=== PATIENT | male | born 1950 | race Caucasian/White ===

== ENCOUNTER 2018-01-04 11:46 | Inpatient (IN) ==
[2018-01-04] MEDS ORDERED: NS 1,000 ML IV ONE (11:57)
[2018-01-04] MEDS: SALINE FLUSH 10ml SYRINGE IVF PRN ×2 (12:21→16:03)
[2018-01-04] MEDS ORDERED: KETOROLAC 30 MG/ML INJECTION IVP ONE (12:31)
--- OUTSIDE RECORDS SUMMARY | 2018-01-04 12:38 | External Medical Summary | Referral Summary ---
:1950 Author Organization [facility] [place] [address] Care Team Providers Name Role Phone Gildardo Nuñez Primary Care Physician Encounter [facility] [id number] Date(s): 03/27/17 - 03/27/17 [facility] [place] [address] Discharge Diagnosis: BPH with urinary obstruction Discharge Diagnosis: Impaired fasting blood sugar Discharge Diagnosis: Adult hypothyroidism Discharge Diagnosis: Acute pansinusitis Discharge Diagnosis: Acute bronchitis Discharge Diagnosis: CKD (chronic kidney disease) stage 3, GFR 30-59 ml/min Discharge Diagnosis: Mixed hyperlipidemia Discharge Diagnosis: Benign essential hypertension Discharge Diagnosis: Thrombocytopenia Discharge Disposition: 01-Home or Self Care Attending Physician: Gildardo Nuñez MD Admitting Physician: Gildardo Nuñez MD Vital Signs Most recent to oldest [Reference Range]: 1 Temperature Tympanic [36.6-38.1 degC] 36.7 degC (03/27/17 7:17 AM) Peripheral Pulse Rate [60-100 bpm] 65 bpm (03/27/17 7:17 AM) Blood Pressure [90-140/60-90 mmHg] 142/82 mmHg *HI* (03/27/17 7:17 AM) SpO2 96 % (03/27/17 7:17 AM) Problem List Condition Effective Dates Status Health Status Informant Asthma(Confirmed) Resolved Benign essential Active hypertension(Confirmed) BPH (benign prostatic hypertrophy) Active with urinary obstruction(Confirmed) BPH(Confirmed) Resolved Low serum HDL(Confirmed) Active Short of breath on Active exertion(Confirmed) Essential hypertension(Confirmed) Active Elevated blood pressure (not Active hypertension)(Confirmed) Olivia thyroiditis(Confirmed) Resolved hx of BPH with prostatism,chronic Resolved prostatitis(Confirmed) hx of calculus imbedded in the Resolved mucosa/left distal ureter(Confirmed) hx of hard left prostatic Resolved nodule(Confirmed) hx of left sided pain(Confirmed) Resolved hx of right distal & ureteral Resolved meatal stenosis(Confirmed) hx of right distal ureteral Resolved obstructed/impacted calculus(Confirmed) Hyperlipidemia(Confirmed) Resolved Hypertension(Confirmed) Resolved Hypothyroidism(Confirmed) Resolved Impaired fasting glucose(Confirmed) Resolved kidney disease/stones(Confirmed) Resolved Leukopenia(Confirmed) Active Low back pain(Confirmed) Resolved Well adult exam(Confirmed) Active Multinodular goiter(Confirmed) Resolved Myelodysplastic syndrome(Confirmed) Resolved Thrombocytopenia(Confirmed) Active Prostatism(Confirmed) Resolved PSA(Confirmed) 10/15/06 Resolved PSA(Confirmed) 04/18/07 Resolved PSA(Confirmed) 06/29/08 Resolved PSA(Confirmed) 01/08/06 Resolved pt is circumcised(Confirmed) Resolved Tinnitus(Confirmed) Resolved ureteral lithiasis(Confirmed) 2006 Resolved Ureterolithiasis(Confirmed)2006 Resolved Need for hepatitis A and B Active vaccination(Confirmed) 1again Allergies, Adverse Reactions, Alerts Substance Reaction Severity Status amoxicillin hives Active Medications levothyroxine 137 mcg (0.137 mg) oral tablet 137 mcg 1 tabs, Oral, Daily, # 90 tabs, 3 Refill(s), Pharmacy: [facility], 1 tabs Oral Daily Start Date: 03/21/16 Status: Orderedlosartan 25 mg oral tablet 25 mg 1 tabs, Oral, Daily, # 30 tabs, 11 Refill(s), Pharmacy: [facility], 1 tabs Oral Daily Start Date: 11/13/16 Status: OrderedVitamin B12 2,500 mcg, SubLingual, Daily, 0 Refill(s) Start Date: 11/13/16 Status: OrderedVitamin D3 1000 intl units oral capsule 1,000 Intl_Units 1 caps, Oral, Daily, 0 Refill(s) Start Date: 11/13/16 Status: Ordered Immunizations Given and Recorded Vaccine Date Status Refusal Reason hepatitis A-hepatitis B vaccine 11/13/16 Given hepatitis A-hepatitis B vaccine 01/26/15 Given hepatitis A-hepatitis B vaccine 12/28/13 Given zoster vaccine live 04/29/12 Given influenza virus vaccine, live 04/29/12 Given tetanus/diphth/pertuss (Tdap) adult/adol 11/25/09 Recorded tetanus-diphth toxoids (Td) adult/adol 10/16/01 Given tetanus-diphth toxoids (Td) adult/adol 12/20/94 Given Procedures Procedure Date Related Diagnosis Body Site Laryngoscopy 2014 Bone marrow aspiration 2011 Cystoscopy1 05/30/07 Removal of stent 05/30/07 Cystoscopy & right distal metal balloon 05/21/07 dilation Right Distal Lithotripsy 05/21/07 Stenting2 05/21/07 Right distal ureteral lithotripsy 04/02/07 Total thyroidectomy3 08/2006 Lithotripsy4 07/2006 needle biopsy of the thyroid 05/2006 cysto and needle biopsy of the prostate 02/13/06 Tonsillectomy 1959 [id number] [id number] thyroid [id number] Social History Social History Type Response Smoking Status Never smoker entered on: 12/28/13 Assessment and Plan Extracted from: Title: Ambulatory Patient Education Author: Gildardo Nuñez MD Date: 03/27/17 Pulmonary Medicine Acute Bronchitis Bronchitis is inflammation of the airways that extend from the windpipe into the lungs (bronchi). The inflammation often causes mucus to develop. This leads to a cough, which is the most common symptom of bronchitis. In acute bronchitis, the condition usually develops suddenly and goes away over time, usually in a couple weeks. Smoking, allergies, and asthma can make bronchitis worse. Repeated episodes of bronchitis may cause further lung problems. CAUSES Acute bronchitis is most often caused by the same virus that causes a cold. The virus can spread from person to person (contagious) through coughing, sneezing, and touching contaminated objects. SIGNS AND SYMPTOMS Cough. Fever. Coughing up mucus. Body aches. Chest congestion. Chills. Shortness of breath. Sore throat. DIAGNOSIS Acute bronchitis is usually diagnosed through a physical exam. Your health care provider will also ask you questions about your medical history. Tests, such as chest X-rays, are sometimes done to rule out other conditions. TREATMENT Acute bronchitis usually goes away in a couple weeks. Oftentimes, no medical treatment is necessary. Medicines are sometimes given for relief of fever or cough. Antibiotic medicines are usually not need ed but may be prescribed in certain situations. In some cases, an inhaler may be recommended to help reduce shortness of breath and control the cough. A cool mist vaporizer may also be used to help thin bronchial secretions and make it easier to clear the chest. HOME CARE INSTRUCTIONS Get plenty of rest. Drink enough fluids to keep your urine clear or pale yellow (unless you have a medical condition that requires fluid restriction). Increasing fluids may help thin your respiratory secretions (sputum ) and reduce chest congestion, and it will prevent dehydration. Take medicines only as directed by your health care provider. If you were prescribed an antibiotic medicine, finish it all even if you start to feel better. Avoid smoking and secondhand smoke. Exposure to cigarette smoke or irritating chemicals will make bronchitis worse. If you are a smoker, consider using nicotine gum or skin patches to help control w ithdrawal symptoms. Quitting smoking will help your lungs heal faster. Reduce the chances of another bout of acute bronchitis by washing your hands frequently, avoiding people with cold symptoms, and trying not to touch your hands to your mouth, nose, or eyes. Keep all follow-up visits as directed by your health care provider. SEEK MEDICAL CARE IF: Your symptoms do not improve after 1 week of treatment. SEEK IMMEDIATE MEDICAL CARE IF: You develop an increased fever or chills. You have chest pain. You have severe shortness of breath. You have bloody sputum. You develop dehydration. You faint or repeatedly feel like you are going to pass out. You develop repeated vomiting. You develop a severe headache. MAKE SURE YOU: Understand these instructions. Will watch your condition. Will get help right away if you are not doing well or get worse. This information is not intended to replace advice given to you by your health care provider. Make sure you discuss any questions you have with your health care provider. Document Released: 07/25/2005 Document Revised: 07/08/2015 Document Reviewed: 12/08/2013 [employer] Patient Education 2017 [employer] No follow up information was provided. Extracted from: Title: several problems Author: Gildardo Nuñez MD Date: 03/27/17 Impression and Plan Diagnosis Benign essential hypertension ([id number] I10, Discharge, Medical). Acute bronchitis (VQF32-JV J20.9, Discharge, Medical). Acute pansinusitis (GDO74-HZ J01.40, Discharge, Medical). Adult hypothyroidism (XWA41-VV E03.9, Discharge, Medical). Thrombocytopenia (IQL55-XW D69.6, Discharge, Medical). Mixed hyperlipidemia (UCU28-PV E78.2, Discharge, Medical). BPH with urinary obstruction (CPU97-WV N40.1, Discharge, Medical). CKD (chronic kidney disease) stage 3, GFR 30-59 ml/min (NSK84-YK N18.3, Discharge, Medical). Impaired fasting blood sugar (HSZ28-DU R73.01, Discharge, Medical). Plan: 1) Continue your current meds. 2) Rest in order to get over your bronchitis and viral sinusitis. 3) See me in 6 months and as needed.. Orders Orders (Selected) Outpatient Orders Ordered Office Visit Level 4 Est 30682: . Dx/Order Association Plan: Diagnosis: Acute bronchitis Comment: Ordered: Office Visit Level 4 Est [id number]; 03/27/17 6:59:00 CDT, Acute bronchitis | Acute pansinusitis | Benign essential hypertension | CKD ( chronic kidney disease) stage 3, GFR 30-59 ml/mi n | Impaired fasting blood sugar | Mixed hyperlipidemia | Thrombocytopenia | BPH with urinary obstructio... Diagnosis: Acute pansinusitis Comment: Ordered: Office Visit Level 4 Est [id number]; 03/27/17 6:59:00 CDT, Acute bronchitis | Acute pansinusitis | Benign essential hypertension | CKD ( chronic kidney disease) stage 3, GFR 30-59 ml/mi n | Impaired fasting blood sugar | Mixed hyperlipidemia | Thrombocytopenia | BPH with urinary obstructio... Diagnosis: Adult hypothyroidism Comment: Ordered: Office Visit Level 4 Est 15761; 03/27/17 6:59:00 CDT, Acute bronchitis | Acute pansinusitis | Benign essential hypertension | CKD ( chronic kidney disease) stage 3, GFR 30-59 ml/mi n | Impaired fasting blood sugar | Mixed hyperlipidemia | Thrombocytopenia | BPH with urinary obstructio... Diagnosis: BPH with urinary obstruction Comment: Ordered: Office Visit Level 4 Est [id number]; 03/27/17 6:59:00 CDT, Acute bronchitis | Acute pansinusitis | Benign essential hypertension | CKD ( chronic kidney disease) stage 3, GFR 30-59 ml/mi n | Impaired fasting blood sugar | Mixed hyperlipidemia | Thrombocytopenia | BPH with urinary obstructio... Diagnosis: Benign essential hypertension Comment: Ordered: Office Visit Level 4 Est 23283; 03/27/17 6:59:00 CDT, Acute bronchitis | Acute pansinusitis | Benign essential hypertension | CKD ( chronic kidney disease) stage 3, GFR 30-59 ml/mi n | Impaired fasting blood sugar | Mixed hyperlipidemia | Thrombocytopenia | BPH with urinary obstructio... Diagnosis: CKD (chronic kidney disease) stage 3, GFR 30-59 ml/min Comment: Ordered: Office Visit Level 4 Est [id number]; 03/27/17 6:59:00 CDT, Acute bronchitis | Acute pansinusitis | Benign essential hypertension | CKD ( chronic kidney disease) stage 3, GFR 30-59 ml/mi n | Impaired fasting blood sugar | Mixed hyperlipidemia | Thrombocytopenia | BPH with urinary obstructio... Diagnosis: Impaired fasting blood sugar Comment: Ordered: Office Visit Level 4 Est [id number]; 03/27/17 6:59:00 CDT, Acute bronchitis | Acute pansinusitis | Benign essential hypertension | CKD ( chronic kidney disease) stage 3, GFR 30-59 ml/mi n | Impaired fasting blood sugar | Mixed hyperlipidemia | Thrombocytopenia | BPH with urinary obstructio... Diagnosis: Mixed hyperlipidemia Comment: Ordered: Office Visit Level 4 Est [id number]; 03/27/17 6:59:00 CDT, Acute bronchitis | Acute pansinusitis | Benign essential hypertension | CKD ( chronic kidney disease) stage 3, GFR 30-59 ml/mi n | Impaired fasting blood sugar | Mixed hyperlipidemia | Thrombocytopenia | BPH with urinary obstructio... Diagnosis: Thrombocytopenia Comment: Ordered: Office Visit Level 4 Est [id number]; 03/27/17 6:59:00 CDT, Acute bronchitis | Acute pansinusitis | Benign essential hypertension | CKD ( chronic kidney disease) stage 3, GFR 30-59 ml/mi n | Impaired fasting blood sugar | Mixed hyperlipidemia | Thrombocytopenia | BPH with urinary obstructio... End of Orders ."
--- OUTSIDE RECORDS SUMMARY | 2018-01-04 12:39 | External Medical Summary | Referral Summary ---
:1950 Author Organization [facility] Address [address] [place] [address] Care Team Providers Name Role Phone Gildardo Nuñez Primary Care Physician Encounter [facility] Date(s): 11/15/16 - 11/15/16 [facility] [address] [place] [address] [place] Discharge Disposition: 01-Home or Self Care Attending Physician: Floyd Rubin MD Admitting Physician: Floyd Rubin MD Vital Signs Most recent to oldest [Reference Range]: 1 Peripheral Pulse Rate [60-100 bpm] 70 bpm (11/15/16 11:57 AM) Blood Pressure [90-140/60-90 mmHg] 177/99 mmHg *HI* (11/15/16 11:57 AM) Problem List Condition Effective Dates Status [...] Resolved Tinnitus(Confirmed) Resolved ureteral lithiasis(Confirmed) 2006 Resolved Ureterolithiasis(Confirmed)1 2006 Resolved Need for hepatitis A and B Active vaccination(Confirmed) 1again Allergies, Adverse Reactions, Alerts Substance Reaction Severity Status amoxicillin hives Active Medications levothyroxine 137 mcg (0.137 mg) oral tablet 137 mcg 1 tabs, Oral, Daily, # 90 tabs, 3 Refill(s), Pharmacy: [facility], 1 tabs Oral Daily Start Date: 03/21/16 Status: Orderedlosartan 25 mg oral tablet 25 mg 1 tabs, Oral, Daily, # 30 tabs, 11 Refill(s), Pharmacy: [facility], 1 tabs Oral Daily Start Date: 11/13/16 Status: OrderedVitamin B12 2,500 mcg, SubLingual, Daily, 0 Refill(s) Start Date: 11/13/16 Status: OrderedVitamin D3 1000 intl units oral capsule 1,000 Intl_Units 1 caps, Oral, Daily, 0 Refill(s) Start Date: 11/13/16 Status: Ordered Results No data available for this section Immunizations Given and Recorded Vaccine Date Status Refusal Reason tetanus/diphth/pertuss (Tdap) adult/adol 11/25/09 Recorded hepatitis A-hepatitis B vaccine 11/13/16 Given hepatitis A-hepatitis B vaccine 01/26/15 Given hepatitis A-hepatitis B vaccine 12/28/13 Given influenza virus vaccine, live 04/29/12 Given tetanus-diphth toxoids (Td) adult/adol 10/16/01 Given tetanus-diphth toxoids (Td) adult/adol 12/20/94 Given zoster vaccine live 04/29/12 Given Procedures Procedure Date Related Diagnosis Body Site Laryngoscopy 2014 Bone marrow aspiration 2011 Cystoscopy1 05/30/07 Removal of stent 05/30/07 Cystoscopy & right distal metal balloon 11/21/07 dilation Right Distal Lithotripsy 05/21/07 Stenting2 05/21/07 Right distal ureteral lithotripsy 04/02/07 Total thyroidectomy3 08/2006 Lithotripsy4 07/2006 needle biopsy of the thyroid 05/2006 cysto and needle biopsy of the prostate 02/13/06 Tonsillectomy 1959 [id number] thyroid [id number] Social History Social History Type Response Smoking Status Never smoker Assessment and Plan No data available for this section
--- OUTSIDE RECORDS SUMMARY | 2018-01-04 12:39 | External Medical Summary | Referral Summary ---
:1950 Author Organization [facility], [address] [place] [address] Care Team Providers Name Role Phone Gildardo Nuñez Primary Care Physician Encounter VC Date(s): 09/27/16 - 09/27/16 [facility] [address] [place] [address] Discharge Diagnosis: Multinodular goiter Discharge Diagnosis: Acute pansinusitis Discharge Diagnosis: Benign essential hypertension Discharge Diagnosis: Impaired fasting blood sugar Discharge Diagnosis: OWEN (dyspnea on exertion) Discharge Diagnosis: Adult hypothyroidism Discharge Diagnosis: Right leg pain Discharge Diagnosis: Mixed hyperlipidemia Discharge Diagnosis: Thrombocytopenia Discharge Diagnosis: Neutropenia Discharge Diagnosis: Acute bronchitis Discharge Diagnosis: Leg paresthesia Discharge Diagnosis: Orthostatic hypotension Discharge Disposition: 01-Home or Self Care Attending Physician: Gildardo Nuñez MD Vital Signs Most recent to oldest [Reference Range]: 1 Peripheral Pulse Rate [60-100 bpm] 84 bpm (09/27/16 3:58 PM) Blood Pressure [90-140/60-90 mmHg] 126/66 mmHg (09/27/16 3:58 PM) Problem List Condition Effective Dates Status Health Status Informant Asthma(Confirmed) Resolved Benign essential Active hypertension(Confirmed) BPH (benign prostatic hypertrophy) Active with urinary obstruction(Confirmed) BPH(Confirmed) Resolved Elevated blood pressure (not Active hypertension)(Confirmed) Olivia [...] Daily, # 90 tabs, 3 Refill(s), Pharmacy: [id number], 1 tabs Oral Daily Start Date: 03/21/16 Status: OrderedTylenol Caplet 325 mg oral tablet 650 mg 2 tabs, Oral, BID, as needed for right leg pain, 0 Refill(s) Start Date: 09/27/16 Status: OrderedVitamin B12 2,500 mcg, Oral, Daily, 0 Refill(s) Start Date: 12/15/13 Status: Ordered Results No data available for this section Immunizations Given and Recorded Vaccine Date Status Refusal Reason tetanus/diphth/pertuss (Tdap) adult/adol 11/25/09 Recorded hepatitis A-hepatitis B vaccine 01/26/15 Given hepatitis [...] biopsy of the prostate 02/13/06 Tonsillectomy 1959 [id number] [id number] thyroid [id number] Social History Social History Type Response Smoking Status Never smoker Assessment and Plan Extracted from: Title: Ambulatory Patient Education Author: Gildardo Nuñez MD Date: 09/27/16 Pulmonary Medicine Acute Bronchitis Bronchitis is inflammation [...] 07/25/2005 Document Revised: 07/08/2015 Document Reviewed: 12/08/2013 [employer] Patient Education 2016 [employer] No follow up information was provided. Extracted from: Title: Male HTN Author: Gildardo Nuñez MD Date: 09/27/16 Impression and Plan Diagnosis Acute bronchitis (UQC42-RK J20.9, Discharge, Medical). Acute pansinusitis (NBZ43-XC J01.40, Discharge, Medical). Adult hypothyroidism (OYY82-VU E03.9, Discharge, Medical). Benign essential hypertension (GSV93-PK I10, Discharge, Medical). OWEN (dyspnea on exertion) (MCI30-GW R06.09, Discharge, Medical). Impaired fasting blood sugar (KQC41-LZ R73.01, Discharge, Medical). Leg paresthesia (SBU50-SM R20.2, Discharge, Medical). Mixed hyperlipidemia (FJM12-GF E78.2, Discharge, Medical). Multinodular goiter (EUI44-ZI E04.2, Discharge, Medical). Neutropenia (OHE09-WK D70.9, Discharge, Medical). Orthostatic hypotension (VBZ67-AG I95.1, Discharge, Medical). Right leg pain (WZE53-HS M79.604, Discharge, Medical). Thrombocytopenia (LTY02-PQ D69.6, Discharge, Medical). Plan: 1) Stop taking the Triamterene-HCTZ, due to lightheadedness with standing. 2) Continue your other meds the same otherwise, for right now. 3) Fasting lab and CXR ordered for tomorrow. 4) See pulmonology for OWEN and possible history of asthma. You will need spirometry. 5) See me in 4-6 weeks for a physical, and as needed. 6) You apparently had trouble tolerating statins, due to memory loss. 7) Followup with Dr. Khalil for your hematologic abnormalities, as scheduled. 8) Healthy diet and daily exercise generally helps to prevent diabetes.. Orders Orders (Selected) Outpatient Orders Ordered Office Visit Level 5 Est 29410: Future (On Hold) CMP: Chest XR 2 Views: Fasting Lipid Profile: Hgb A1c: Vitamin D 25 OH: . Dx/Order Association Plan: Diagnosis: Acute bronchitis Comment: Ordered: Office Visit Level 5 Est 45178; 09/27/16 15:58:00 CDT, Benign essential hypertension | Right leg pain | Leg paresthesia | Acute bronchitis | Acute pansinusitis | OWEN (dyspnea on e xertion) | Neutropenia | Thrombocytopenia | Mixed hyperlipidemia | Adult hypothyroidism | Multinodular g... Future Orders: XR Chest 2 Views; *Est. 09/27/16 due within 1 days , Routine, Reason: Cough, Acute bronchitis | OWEN (dyspnea on exertion), ABN Status: Not Required Diagnosis: Acute pansinusitis Comment: Ordered: Office Visit Level 5 Est 67915; 09/27/16 15:58:00 CDT, Benign essential hypertension | Right leg pain | Leg paresthesia | Acute bronchitis | Acute pansinusitis | OWEN (dyspnea on e xertion) | Neutropenia | Thrombocytopenia | Mixed hyperlipidemia | Adult hypothyroidism | Multinodular g... Diagnosis: Adult hypothyroidism Comment: Ordered: Office Visit Level 5 Est 82225; 09/27/16 15:58:00 CDT, Benign essential hypertension | Right leg pain | Leg paresthesia | Acute bronchitis | Acute pansinusitis | OWEN (dyspnea on e xertion) | Neutropenia | Thrombocytopenia | Mixed hyperlipidemia | Adult hypothyroidism | Multinodular g... Diagnosis: Benign essential hypertension Comment: Ordered: Office Visit Level 5 Est 82296; 09/27/16 15:58:00 CDT, Benign essential hypertension | Right leg pain | Leg paresthesia | Acute bronchitis | Acute pansinusitis | OWEN (dyspnea on e xertion) | Neutropenia | Thrombocytopenia | Mixed hyperlipidemia | Adult hypothyroidism | Multinodular g... Future Orders: CMP; Blood, Routine Collect, *Est. 09/27/16 due within 2 days, Once, Lab Collect, Benign essential hypertension | Orthostatic hypotension | Mixed hyperlipidemia, Order for future visit Diagnosis: OWEN (dyspnea on exertion) Comment: Ordered: Office Visit Level 5 Est [id number]; 09/27/16 15:58:00 CDT, Benign essential hypertension | Right leg pain | Leg paresthesia | Acute bronchitis | Acute pansinusitis | OWEN (dyspnea on e xertion) | Neutropenia | Thrombocytopenia | Mixed hyperlipidemia | Adult hypothyroidism | Multinodular g... Future Orders: XR Chest 2 Views; *Est. 09/27/16 due within 1 days , Routine, Reason: Cough, Acute bronchitis | OWEN (dyspnea on exertion), ABN Status: Not Required Diagnosis: Impaired fasting blood sugar Comment: Future Orders: Vit D25 OH; Blood, Routine Collect, *Est. due within 2 days, Once, Lab Collect, Impaired fasting blood sugar | Right leg pain, Order for future visit Hgb A1c; Blood, Routine Collect, *Est. due within 2 days, Once, Lab Collect, Impaired fasting blood sugar, Order for future visit Diagnosis: Leg paresthesia Comment: Ordered: Office Visit Level 5 Est 45623; 09/27/16 15:58:00 CDT, Benign essential hypertension | Right leg pain | Leg paresthesia | Acute bronchitis | Acute pansinusitis | OWEN (dyspnea on e xertion) | Neutropenia | Thrombocytopenia | Mixed hyperlipidemia | Adult hypothyroidism | Multinodular g... Diagnosis: Mixed hyperlipidemia Comment: Ordered: Office Visit Level 5 Est 64131; 09/27/16 15:58:00 CDT, Benign essential hypertension | Right leg pain | Leg paresthesia | Acute bronchitis | Acute pansinusitis | OWEN (dyspnea on e xertion) | Neutropenia | Thrombocytopenia | Mixed hyperlipidemia | Adult hypothyroidism | Multinodular g... Future Orders: Lipid Panel; Blood, Routine Collect, *Est. due within 2 days, Once, Lab Collect, Mixed hyperlipidemia, Order for future visit CMP; Blood, Routine Collect, *Est. due within 2 days, Once, Lab Collect, Benign essential hypertension | Orthostatic hypotension | Mixed hyperlipidemia, Order for future visit Diagnosis: Multinodular goiter Comment: Ordered: Office Visit Level 5 Est 50957; 09/27/16 15:58:00 CDT, Benign essential hypertension | Right leg pain | Leg paresthesia | Acute bronchitis | Acute pansinusitis | OWEN (dyspnea on e xertion) | Neutropenia | Thrombocytopenia | Mixed hyperlipidemia | Adult hypothyroidism | Multinodular g... Diagnosis: Neutropenia Comment: Ordered: Office Visit Level 5 Est 59251; 09/27/16 15:58:00 CDT, Benign essential hypertension | Right leg pain | Leg paresthesia | Acute bronchitis | Acute pansinusitis | OWEN (dyspnea on e xertion) | Neutropenia | Thrombocytopenia | Mixed hyperlipidemia | Adult hypothyroidism | Multinodular g... Diagnosis: Orthostatic hypotension Comment: Ordered: Office Visit Level 5 Est 96524; 09/27/16 15:58:00 CDT, Benign essential hypertension | Right leg pain | Leg paresthesia | Acute bronchitis | Acute pansinusitis | OWEN (dyspnea on e xertion) | Neutropenia | Thrombocytopenia | Mixed hyperlipidemia | Adult hypothyroidism | Multinodular g... Future Orders: CMP; Blood, Routine Collect, *Est. 09/27/16 due within 2 days, Once, Lab Collect, Benign essential hypertension | Orthostatic hypotension | Mixed hyperlipidemia, Order for future visit Diagnosis: Right leg pain Comment: Ordered: Office Visit Level 5 Est 08647; 09/27/16 15:58:00 CDT, Benign essential hypertension | Right leg pain | Leg paresthesia | Acute bronchitis | Acute pansinusitis | OWEN (dyspnea on e xertion) | Neutropenia | Thrombocytopenia | Mixed hyperlipidemia | Adult hypothyroidism | Multinodular g... Future Orders: Vit D25 OH; Blood, Routine Collect, *Est. due within 2 days, Once, Lab Collect, Impaired fasting blood sugar | Right leg pain, Order for future visit Diagnosis: Thrombocytopenia Comment: Ordered: Office Visit Level 5 Est 80399; 09/27/16 15:58:00 CDT, Benign essential hypertension | Right leg pain | Leg paresthesia | Acute bronchitis | Acute pansinusitis | OWEN (dyspnea on e xertion) | Neutropenia | Thrombocytopenia | Mixed hyperlipidemia | Adult hypothyroidism | Multinodular g... Additional Orders: Comment: Ordered: Tylenol Caplet 325 mg oral tablet,650 mg 2 tabs, Oral, BID, as needed for right leg pain, 0 Refill(s) Ordered: triamterene-hydrochlorothiazide 37.5 mg-25 mg oral tablet ,1 tabs, Oral, Daily, # 30 tabs, 0 Refill(s) End of Orders ."
--- OUTSIDE RECORDS SUMMARY | 2018-01-04 12:39 | External Medical Summary | Referral Summary ---
:1950 Author Organization [facility], [address] [place] [address] Care Team Providers Name Role Phone Gildardo Nuñez Primary Care Physician Encounter VC Date(s): 12/25/16 - 12/25/16 [facility] [address] [place] [address] [place] Discharge Diagnosis: Benign essential hypertension Discharge Diagnosis: Mixed hyperlipidemia Discharge Diagnosis: Impaired fasting blood sugar Discharge Diagnosis: Thrombocytopenia Discharge Diagnosis: CKD (chronic kidney disease) stage 3, GFR 30-59 ml/min Discharge Diagnosis: Adult hypothyroidism Discharge Diagnosis: Hypovitaminosis D Discharge Diagnosis: Elevated liver enzymes Discharge Diagnosis: BPH with urinary obstruction Discharge Disposition: 01-Home or Self Care Attending Physician: Gildardo Nuñez MD Admitting Physician: Gildardo Nuñez MD Vital Signs Most recent to oldest [Reference Range]: 1 Peripheral Pulse Rate [60-100 bpm] 67 bpm (12/25/16 7:37 AM) Blood Pressure [90-140/60-90 mmHg] 144/92 mmHg *HI* (12/25/16 7:37 AM) SpO2 99 % (12/25/16 7:37 AM) Problem List Condition Effective Dates Status [...] Daily, # 90 tabs, 3 Refill(s), Pharmacy: [facility], 1 tabs Oral Daily Start Date: 03/21/16 Status: Orderedlosartan 25 mg oral tablet 25 mg 1 tabs, Oral, Daily, # 30 tabs, 11 Refill(s), Pharmacy: [facility], 1 tabs Oral Daily Start [...] Procedure Date Related Diagnosis Body Site Laryngoscopy 2013 Bone marrow aspiration 2010 Cystoscopy1 05/30/07 Removal of stent 05/30/07 Cystoscopy & right distal metal balloon 05/21/07 dilation Right Distal Lithotripsy 05/21/07 Stenting2 05/21/07 Right distal ureteral lithotripsy 04/02/07 Total thyroidectomy3 08/2006 Lithotripsy4 07/2006 needle biopsy of the thyroid 05/2006 cysto and needle biopsy of the prostate 02/13/06 Tonsillectomy 1959 [id number] [id number] thyroid [id number] Social History Social History Type Response Smoking Status Never smoker Assessment and Plan Extracted from: Title: Ambulatory Patient Education Author: Gildardo Nuñez MD Date: 12/25/16 Preventive Health Heart Disease Prevention Heart disease is a leading cause of . There are many things you can do to help prevent heart disease. BE PHYSICALLY ACTIVE Physical activity is good for your heart. It helps control your blood pressure , cholesterol levels, and weight. Try to be physically active every day. Ask your health care provider what activities are best for you. BE A HEALTHY WEIGHT Extra weight can strain your heart and affect your blood pressure and cholesterol levels. Lose weight with diet and exercise if recommended by your health care provider. EAT HEART-HEALTHY FOODS Follow a healthy eating plan as recommended by your health care provider or dietitian. Heart-healthy foods include: High-fiber foods. These include oat bran, oatmeal, and whole-grain breads and cereals. Fruits and vegetables. Avoid: Alcohol. Fried foods. Foods high in saturated fat. These include meats, butter, whole dairy products, shortening, and coconut or palm oil. Salty foods. These include canned food, luncheon meat, salty snacks, and fast food. KEEP YOUR CHOLESTEROL LEVELS UNDER CONTROL Cholesterol is a substance that is used for many important functions. When your cholesterol levels are high, cholesterol can stick to the insides of your blood vessels, making them narrow or clog. This can lead to chest pain (angina) and a heart attack. Keep your cholesterol levels under control as recommended by your health care provider. Have your cholesterol checked at least once a year. Target cholesterol levels (in mg/dL) for most people are: Total cholesterol below 200. LDL cholesterol below 100. HDL cholesterol above 40 in men and above 50 in women. Triglycerides below 150. KEEP YOUR BLOOD PRESSURE UNDER CONTROL Having high blood pressure (hypertension) puts you at risk for stroke and other forms of heart disease. Keep your blood pressure under control as recommended by your health care provider. Ask your [facility] care provider if you need treatment to lower your blood pressure. If you are 1839 years of age, have your blood pressure checked every 35 years. If you are 40 years of age or older, have your blood pressure checked every year. DO NOT USE TOBACCO PRODUCTS Tobacco smoke can damage your heart and blood vessels. Do not use any tobacco products including cigarettes, chewing tobacco, or electronic cigarettes. If you need help quitting, ask your health care provider. TAKE MEDICINES DIRECTED Take medicines only as directed by your health care provider. Ask your health care provider whether you should take an aspirin every day. Taking aspirin can help reduce your risk of heart disease and stroke. FOR MORE INFORMATION To find out more about heart disease, visit the [place] [employer]'s website at www.americanheart.org This information is not intended to replace advice given to you by your health care provider. Make sure you discuss any questions you have with your health care provider. Document Released: 01/29/2005 Document Revised: 07/08/2015 Document Reviewed: 08/11/2014 [employer] Interactive Patient Education 2016 [employer] No follow up information was provided. Extracted from: Title: several problems Author: Gildardo Nuñez MD Date: 12/25/16 Impression and Plan Diagnosis Benign essential hypertension (GAK90-NC I10, Discharge, Medical). Adult hypothyroidism (CJE52-HB E03.9, Discharge, Medical). Impaired fasting blood sugar (EHV41-TN R73.01, Discharge, Medical). Thrombocytopenia (VUE97-PS D69.6, Discharge, Medical). Mixed hyperlipidemia (LDC72-UH E78.2, Discharge, Medical). Hypovitaminosis D (POD12-PL E55.9, Discharge, Medical). Elevated liver enzymes (BUN72-YC R74.8, Discharge, Medical). BPH with urinary obstruction (EDA99-KN N40.1, Discharge, Medical). CKD (chronic kidney disease) stage 3, GFR 30-59 ml/min (KMB44-OI N18.3, Discharge, Medical). Plan: 1) Continue your present meds. 2) Healthy diet and daily exercise helps most things. 3) Always avoid Ibuprofen and Aleve. 4) Drink plenty of fluids so as to never get dehydrated. 5) See me in 3 months and as needed. 6) Get lab next week. 7) Check your BP at home and write these down. Bring your cuff in for accuracy checking.. Orders Orders (Selected) Outpatient Orders Ordered Office Visit Level 4 Est 21329: Future (On Hold) BMP: Vitamin D 25 OH: . Dx/Order Association Plan: Diagnosis: Adult hypothyroidism Comment: Ordered: Office Visit Level 4 Est 69781; 12/25/16 7:16:00 CDT, Benign essential hypertension | CKD (chronic kidney disease) stage 3, GFR 30-59 ml/min | Hypovitaminosis D | Mixed hyperlipid emia | Impaired fasting blood sugar | BPH with urinary obstruction | Adult hypothyroidism | Thrombocytop... Diagnosis: BPH with urinary obstruction Comment: Ordered: Office Visit Level 4 Est [id number]; 12/25/16 7:16:00 CDT, Benign essential hypertension | CKD (chronic kidney disease) stage 3, GFR 30-59 ml/min | Hypovitaminosis D | Mixed hyperlipid emia | Impaired fasting blood sugar | BPH with urinary obstruction | Adult hypothyroidism | Thrombocytop... Diagnosis: Benign essential hypertension Comment: Ordered: Office Visit Level 4 Est 70408; 12/25/16 7:16:00 CDT, Benign essential hypertension | CKD (chronic kidney disease) stage 3, GFR 30-59 ml/min | Hypovitaminosis D | Mixed hyperlipid emia | Impaired fasting blood sugar | BPH with urinary obstruction | Adult hypothyroidism | Thrombocytop... Future Orders: BMP; Blood, Routine Collect, *Est. 01/02/17 +/- 21 days, Once, Lab Collect, Benign essential hypertension | CKD (chronic kidney disease) stage 3, GFR 30-59 ml/min | Impaired fasting blood sugar, Order for future visit Diagnosis: CKD (chronic kidney disease) stage 3, GFR 30-59 ml/min Comment: Ordered: Office Visit Level 4 Est 80051; 12/25/16 7:16:00 CDT, Benign essential hypertension | CKD (chronic kidney disease) stage 3, GFR 30-59 ml/min | Hypovitaminosis D | Mixed hyperlipid emia | Impaired fasting blood sugar | BPH with urinary obstruction | Adult hypothyroidism | Thrombocytop... Future Orders: BMP; Blood, Routine Collect, *Est. 01/02/17 +/- 21 days, Once, Lab Collect, Benign essential hypertension | CKD (chronic kidney disease) stage 3, GFR 30-59 ml/min | Impaired fasting blood sugar, Order for future visit Diagnosis: Elevated liver enzymes Comment: Ordered: Office Visit Level 4 Est 21323; 12/25/16 7:16:00 CDT, Benign essential hypertension | CKD (chronic kidney disease) stage 3, GFR 30-59 ml/min | Hypovitaminosis D | Mixed hyperlipid emia | Impaired fasting blood sugar | BPH with urinary obstruction | Adult hypothyroidism | Thrombocytop... Diagnosis: Hypovitaminosis D Comment: Ordered: Office Visit Level 4 Est 85721; 12/25/16 7:16:00 CDT, Benign essential hypertension | CKD (chronic kidney disease) stage 3, GFR 30-59 ml/min | Hypovitaminosis D | Mixed hyperlipid emia | Impaired fasting blood sugar | BPH with urinary obstruction | Adult hypothyroidism | Thrombocytop... Diagnosis: Impaired fasting blood sugar Comment: Ordered: Office Visit Level 4 Est 01531; 12/25/16 7:16:00 CDT, Benign essential hypertension | CKD (chronic kidney disease) stage 3, GFR 30-59 ml/min | Hypovitaminosis D | Mixed hyperlipid emia | Impaired fasting blood sugar | BPH with urinary obstruction | Adult hypothyroidism | Thrombocytop... Future Orders: BMP; Blood, Routine Collect, *Est. 01/02/17 +/- 21 days, Once, Lab Collect, Benign essential hypertension | CKD (chronic kidney disease) stage 3, GFR 30-59 ml/min | Impaired fasting blood sugar, Order for future visit Diagnosis: Mixed hyperlipidemia Comment: Ordered: Office Visit Level 4 Est 58254; 12/25/16 7:16:00 CDT, Benign essential hypertension | CKD (chronic kidney disease) stage 3, GFR 30-59 ml/min | Hypovitaminosis D | Mixed hyperlipid emia | Impaired fasting blood sugar | BPH with urinary obstruction | Adult hypothyroidism | Thrombocytop... Diagnosis: Thrombocytopenia Comment: Ordered: Office Visit Level 4 Est 37074; 12/25/16 7:16:00 CDT, Benign essential hypertension | CKD (chronic kidney disease) stage 3, GFR 30-59 ml/min | Hypovitaminosis D | Mixed hyperlipid emia | Impaired fasting blood sugar | BPH with urinary obstruction | Adult hypothyroidism | Thrombocytop... End of Orders ."
--- OUTSIDE RECORDS SUMMARY | 2018-01-04 12:39 | External Medical Summary | Referral Summary ---
:1950 Author Organization [facility], Pulmonary Address [address] [place] [address] [place] [address] Care Team Providers Name Role Phone Gildardo Nuñez Primary Care Physician Encounter VC Date(s): 10/17/16 - 10/17/16 [facility] [place], [address] [place], [id number]- Discharge Diagnosis: OWEN (dyspnea on exertion) Discharge Disposition: 01-Home or Self Care Attending Physician: Yvette Jarvis MD Admitting Physician: Yvtete Jarvis MD Referring Physician: Gildardo Nuñez MD Vital Signs Most recent to oldest [Reference Range]: 1 Peripheral Pulse Rate [60-100 bpm] 68 bpm (10/17/16 1:39 PM) Respiratory Rate [14-20 br/min] 16 br/min (10/17/16 1:39 PM) Blood Pressure [90-140/60-90 mmHg] 142/70 mmHg *HI* (10/17/16 1:39 PM) SpO2 97 % (10/17/16 1:39 PM) Problem List Condition Effective Dates Status [...] Daily, # 90 tabs, 3 Refill(s), Pharmacy: [facility], 1 tabs Oral Daily Start Date: 03/21/16 Status: OrderedTylenol Caplet 325 mg oral tablet 650 mg 2 tabs, Oral, BID, as needed for right leg pain, 0 Refill(s) Start Date: 09/27/16 Status: OrderedVitamin B12 2,500 mcg, Oral, Daily, 0 Refill(s) Start Date: 12/15/13 Status: OrderedVitamin D3 2000 intl units oral capsule 2,000 Intl_Units 1 caps, Oral, Daily, Take 2 capsules for 2 months (10-03-16), 0 Refill(s) Start Date: 10/03/16 Status: Ordered Results No data available for [...] biopsy of the prostate 02/13/06 Tonsillectomy 1959 [id number] [id number] thyroid [id number] Social History Social History Type Response Smoking Status Never smoker Assessment and Plan Extracted from: Title: Office Visit Note Author: Yvette Jarvis MD Date: 10/17/16 Assessment/Plan 1.OWEN (dyspnea on exertion) Shortness of breath. Mild and intermittent. Present during ambulation and exercise Mild intermittent cough Exposed to dust as a kim. Nonsmoker Chest imaging is normal Pulmonary function test is normal At this point I do not see any underlying lung disease. I discussed the result of the x-ray and pulmonary function test with the patient. We will hold on inhalers or further treatment/investigation for frompulmonary standpoint I suggest cardiology evaluationto rule out any underlying CAD/angina equivalent Followup in 3 months
--- OUTSIDE RECORDS SUMMARY | 2018-01-04 12:39 | External Medical Summary | Referral Summary ---
:1950 Author Organization [facility] Address [address] [place] [address] [place] [address] Care Team Providers Name Role Phone Gildardo Nuñez Primary Care Physician Encounter VC Date(s): 10/17/16 - 10/17/16 [facility] [place], [address]- Discharge Diagnosis: SOB (shortness of breath) Discharge Disposition: 01-Home or Self Care Attending Physician: Yvette Jarvis MD Admitting Physician: Yvette Jarvis MD Referring Physician: Gildardo Nuñez MD Vital Signs No data available for this section Problem List Condition Effective Dates Status Health [...] Daily, # 90 tabs, 3 Refill(s), Pharmacy: [id number], 1 tabs Oral Daily Start [...] Body Site Laryngoscopy 2013 Bone marrow aspiration 2011 Cystoscopy1 05/30/07 Removal of stent 05/30/07 Cystoscopy & right distal metal balloon 05/21/07 dilation Right Distal Lithotripsy 05/21/07 Stenting2 05/21/07 Right distal ureteral lithotripsy 04/02/07 Total thyroidectomy3 08/2006 Lithotripsy4 07/2006 needle biopsy of the thyroid 05/2006 cysto and needle biopsy of the prostate 02/13/06 Tonsillectomy 1959 [id number] thyroid [id number] Social History Social History Type Response Smoking Status Never smoker Assessment and Plan No data available for this section
--- OUTSIDE RECORDS SUMMARY | 2018-01-04 12:39 | External Medical Summary | Referral Summary ---
:1950 Author Organization [facility] Card[facility] [address] [place] [address] Care Team Providers Name Role Phone Gildardo Nuñez Primary Care Physician Encounter VC Date(s): 11/07/16 - 11/07/16 [facility] [address] [place] [address] [place] [address] [place] Discharge Diagnosis: Short of breath on exertion Discharge Diagnosis: Essential hypertension Discharge Diagnosis: Low serum HDL Discharge Diagnosis: Thrombocytopenia Discharge Diagnosis: Leukopenia Discharge Disposition: 01-Home or Self Care Attending Physician: Floyd Rubin MD Admitting Physician: Floyd Rubin MD Referring Physician: Gildardo Nuñez MD Vital Signs Most recent to oldest [Reference Range]: 1 Peripheral Pulse Rate [60-100 bpm] 60 bpm (11/07/16 10:04 AM) Blood Pressure [90-140/60-90 mmHg] 150/94 mmHg *HI* (11/07/16 10:04 AM) Problem List Condition Effective Dates Status [...] Daily, # 90 tabs, 3 Refill(s), Pharmacy: [id number], 1 tabs Oral Daily Start Date: 03/21/16 Status: Orderedlosartan 25 mg oral tablet 25 mg 1 tabs, Oral, Daily, # 30 tabs, 4 Refill(s), Pharmacy: [id number], 1 tabs Oral Daily Start Date: 11/07/16 Status: OrderedTylenol Caplet 325 mg oral tablet 650 mg 2 tabs, Oral, BID, as needed for right leg pain, 0 Refill(s) Start Date: 09/27/16 Status: Ordered Results No data available for [...] Body Site Laryngoscopy 2014 Bone marrow aspiration 2010 Cystoscopy1 05/30/07 Removal of stent 05/30/07 Cystoscopy & right distal metal balloon 05/21/07 dilation Right Distal Lithotripsy 05/21/07 Stenting2 05/21/07 Right distal ureteral lithotripsy 04/02/07 Total thyroidectomy3 08/2006 Lithotripsy4 07/2006 needle biopsy of the thyroid 05/2006 cysto and needle biopsy of the prostate 02/13/06 Tonsillectomy 195 [id number] thyroid [id number] Social History Social History Type Response Smoking Status Never smoker Assessment and Plan No data available for this section
[2018-01-04] MEDS ORDERED: CEFEPIME 1 GM in NS 100 ML IV ONE (12:45)
--- NOTE | 2018-01-04 14:23 | Emergency Department Report ---
General Adult HPI - General Chief complaint: Medical Emergency Stated complaint: rapid pulse, chills, shaky, fever Time Seen by Provider: 01/04/18 12:31 - History of Present Illness HPI narrative: 67-year-old gentleman presents with fever, tachycardia and weakness. His states that he had to take bites approximately 2-3 weeks ago. He did well until the last 4 days and has had elevated temperature during that period of time. Temp has been up to 102.8 and has been rising above 102 every evening. He has had decreased appetite and not been drinking much fluid. The last 2 days he has had some confusion in the evenings. This confusion seems to resolve during the day and has resolved today again. He did have cystoscopy earlier this week to evaluate for his appropriateness to have prostate reduction surgery. - Related Data Home Medications Medication Instructions Recorded Confirmed Acetaminophen 650 mg PO Q4H PRN 01/04/18 01/04/18 Atorvastatin [Lipitor] 20 mg PO HS 01/04/18 01/04/18 Cholecalciferol (Vitamin D3) 2,000 unit PO DAILY 01/04/18 01/04/18 [Vitamin D3] Cyanocobalamin (Vitamin B-12) 2,500 mcg SL DAILY 01/04/18 01/04/18 [Vitamin B-12] Ibuprofen [Advil] 400 mg PO Q4H PRN 01/04/18 01/04/18 Levothyroxine Sodium 137 mcg PO DAILY 01/04/18 01/04/18 Losartan [Cozaar] 50 mg PO DAILY 01/04/18 01/04/18 Allergies Allergy/AdvReac Type Severity Reaction Status Date / Time amoxicillin Allergy Hives Verified 01/04/18 12:12 Physical Exam - Limitations Limitations: no limitations - General General appearance: alert - Chest Chest inspection: Present: normal inspection - Respiratory Respiratory exam: Present: normal lung sounds bilaterally - Cardiovascular Cardiovascular exam: Present: normal rhythm, tachycardia, normal heart sounds - Abdominal Exam Abdominal exam: Present: soft, normal bowel sounds. Absent: distention, tenderness, guarding, rebound, rigidity - Extremities Exam Extremities exam: Present: normal inspection Course Vital Signs Temperature 100.2 F 01/04/18 11:51 Pulse Rate 103 H 01/04/18 11:51 Respiratory Rate 22 01/04/18 11:51 Blood Pressure 140/69 H 01/04/18 11:51 Pulse Oximetry 96 01/04/18 11:51 Temperature 100.2 F 01/04/18 11:51 Pulse Rate 92 01/04/18 14:00 Respiratory Rate 22 01/04/18 11:51 Blood Pressure 104/57 01/04/18 14:00 Pulse Oximetry 95 01/04/18 14:00 Medical Decision Making - [facility] Narrative Medical decision making narrative: Peripheral IV placed with 1 L normal saline bolus. Patient given Toradol 30 mg IV due to elevated temp and body aches. CBC, CMP, UA chest x-ray blood cultures and urine culture ordered. White count returns greater than 18,000 with significant left shift. Lactate 2.7, pro calcitonin 13. Chest x-ray and UA are negative except that patient does have positive hematuria, most likely due to cystoscopy performed earlier this week. Patient given cefepime 1 g IV within 1 hour of evaluation. Hospitalist consulted and is accepting patient for severe sepsis blood cultures are pending. - Differential Diagnosis sepsis, UTI, dehydration, heat exhaustion - Lab Data Lab results reviewed: Yes: I reviewed the patient's lab results. Result diagrams: 01/04/18 12:06 01/04/18 12:06 Lab Results 01/04/18 01/04/18 01/04/18 Range/Units 12:06 12:06 12:06 WBC 18.1 H (4.5-11.0) T/MM3 RBC 4.92 (4.50-5.90) M/MM3 Hgb 15.2 (13.5-17.5) GM/DL Hct 44.7 (41-53) % MCV 90.9 (80-100) UM3 MCH 30.9 (26-34) UUG MCHC 34.0 (31-37) GM/DL RDW Std Deviation 47.1 (36.9-50.2) FL Plt Count 84 L (130-400) T/MM3 MPV 11.2 (9.4-12.4) UM3 Immature Gran % (Auto) Not performed Neut % (Auto) Not performed Lymph % (Auto) Not performed [place] % (Auto) Not performed Eos % (Auto) Not performed Baso % (Auto) Not performed Neut # (Auto) Not performed Lymph # (Auto) Not performed [place] # (Auto) Not performed Eos # (Auto) Not performed Baso # (Auto) Not performed Abs Immat Gran (auto) Not performed Neutrophils % (Manual) 74.0 H (33-66) % Band Neutrophils % 19.0 H (0-6) % Lymphocytes % (Manual) 6.0 L (23-45) % Monocytes % (Manual) 1.0 (0-9.0) % Neutrophils # (Manual) 13.4 H (1.8-7.7) T/MM3 Band Neutrophils # 3.4 T/MM3 Lymphocytes # (Manual) 1.1 (1-4.8) T/MM3 Monocytes # (Manual) 0.2 (0-0.8) T/MM3 RBC Morph Comment Normal Turbidity < 20 (0-20) Sodium 139 (136-146) MEQ/L Potassium 3.8 (3.6-5) MEQ/L Chloride 100 (98-107) MEQ/L Carbon Dioxide 26 (22-30) MEQ/L Anion Gap 13 (5-15) meq/L BUN 43.0 H (9-20) MG/DL Creatinine 2.1 H (0.8-1.5) mg/dL GFR Calculation 32 BUN/Creatinine Ratio 21 (6-26) RATIO Glucose 143 H (75-110) MG/DL Calculated Osmolality 281 H (261-280) MOSM/KG Calcium 8.6 (8.4-10.2) MG/DL Total Bilirubin 1.10 (0.20-1.30) MG/DL Icterus Index < 2 (0-7) AST 36 (17-59) U/L ALT 29 (1-50) U/L Alkaline Phosphatase 49 (38-126) U/L Total Creatine Kinase (55-170) U/L Total Protein 6.9 (6.3-8.2) g/dL Albumin 4.0 (3.5-5.0) g/dL Globulin 2.9 (2.4-3.6) G/DL Albumin/Globulin Ratio 1.4 (1.1-2.2) RATIO Plasma Lactate 2.7 H (0.6-2.2) MMOL/L Procalcitonin 13.59 H* NG/ML Specimen Hemolysis < 15 (0-25) Ur Collection Type Urine Color (YELLOW) Urine Clarity Urine pH (5.0-8.0) Ur Specific [place] (1.015-1.025) Urine Protein (NEGATIVE) Urine Glucose (UA) (NEGATIVE) Urine Ketones (NEGATIVE) Urine Occult Blood (NEGATIVE) Urine Nitrate (NEGATIVE) Urine Bilirubin (NEGATIVE) Urine Urobilinogen (NORMAL) EU/DL Ur Leukocyte Esterase (NEGATIVE) Urine RBC (0-3) /HPF Urine WBC (0-5) /HPF Urine Bacteria (NEGATIVE) Ur Culture Indicated? 01/04/18 01/04/18 01/04/18 Range/Units 12:06 12:06 12:20 WBC (4.5-11.0) T/MM3 RBC (4.50-5.90) M/MM3 Hgb (13.5-17.5) GM/DL Hct (41-53) % MCV (80-100) UM3 MCH (26-34) UUG MCHC (31-37) GM/DL RDW Std Deviation (36.9-50.2) FL Plt Count (130-400) T/MM3 MPV (9.4-12.4) UM3 Immature Gran % (Auto) Neut % (Auto) Lymph % (Auto) [place] % (Auto) Eos % (Auto) Baso % (Auto) Neut # (Auto) Lymph # (Auto) [place] # (Auto) Eos # (Auto) Baso # (Auto) Abs Immat Gran (auto) Neutrophils % (Manual) (33-66) % Band Neutrophils % (0-6) % Lymphocytes % (Manual) (23-45) % Monocytes % (Manual) (0-9.0) % Neutrophils # (Manual) (1.8-7.7) T/MM3 Band Neutrophils # T/MM3 Lymphocytes # (Manual) (1-4.8) T/MM3 Monocytes # (Manual) (0-0.8) T/MM3 RBC Morph Comment Turbidity (0-20) Sodium (136-146) MEQ/L Potassium (3.6-5) MEQ/L Chloride (98-107) MEQ/L Carbon Dioxide (22-30) MEQ/L Anion Gap (5-15) meq/L BUN (9-20) MG/DL Creatinine (0.8-1.5) mg/dL GFR Calculation BUN/Creatinine Ratio (6-26) RATIO Glucose (75-110) MG/DL Calculated Osmolality (261-280) MOSM/KG Calcium (8.4-10.2) MG/DL Total Bilirubin (0.20-1.30) MG/DL Icterus Index (0-7) AST (17-59) U/L ALT (1-50) U/L Alkaline Phosphatase (38-126) U/L Total Creatine Kinase 479 H (55-170) U/L Total Protein (6.3-8.2) g/dL Albumin (3.5-5.0) g/dL Globulin (2.4-3.6) G/DL Albumin/Globulin Ratio (1.1-2.2) RATIO Plasma Lactate 2.8 H (0.6-2.2) MMOL/L Procalcitonin NG/ML Specimen Hemolysis (0-25) Ur Collection Type Urine, void-cc/notcc Urine Color Yellow (YELLOW) Urine Clarity Clear Urine pH 5.5 (5.0-8.0) Ur Specific [place] >=1.030 H (1.015-1.025) Urine Protein 1+ A (NEGATIVE) Urine Glucose (UA) Negative (NEGATIVE) Urine Ketones Negative (NEGATIVE) Urine Occult Blood 3+ A (NEGATIVE) Urine Nitrate Negative (NEGATIVE) Urine Bilirubin Negative (NEGATIVE) Urine Urobilinogen 0.2 (NORMAL) EU/DL Ur Leukocyte Esterase Negative (NEGATIVE) Urine RBC 3-5 H (0-3) /HPF Urine WBC 1-3 (0-5) /HPF Urine Bacteria 2+ H (NEGATIVE) Ur Culture Indicated? Cult not indicated - Radiology Data Radiology results reviewed: Yes: I reviewed the patient's radiology results. Disposition Disposition: 02 To [facility] Acute Care Condition: Stable Prescriptions: No Action Ibuprofen [Advil] 400 mg PO Q4H PRN PRN Reason: Pain Levothyroxine Sodium 137 mcg PO DAILY Cholecalciferol (Vitamin D3) [Vitamin D3] 2,000 unit PO DAILY Losartan [Cozaar] 50 mg PO DAILY Atorvastatin [Lipitor] 20 mg PO HS Acetaminophen 650 mg PO Q4H PRN PRN Reason: Pain Cyanocobalamin (Vitamin B-12) [Vitamin B-12] 2,500 mcg SL DAILY Referrals: Gildardo Nuñez MD [Primary Care Provider] - Time of Disposition: 14:27 - Seen By: physician
[2018-01-04 14:44] VITALS: BMI 26.9
[2018-01-04] MEDS ORDERED: SENNA + DOCUSATE TABLET PO PRN (15:36)
[2018-01-04] MEDS ORDERED: POLYETHYL GLYCOL 3350 17gm PACKET PO PRN (15:36)
[2018-01-04] MEDS ORDERED: DOXYCYCLINE 100 MG in NS 250ml 250 ML IV SCH (15:40)
[2018-01-04] MEDS: NS 1,000 ML IV SCH (16:03)
--- NOTE | 2018-01-04 16:39 | History & Physical Report ---
History of Present Illness Date: 01/04/18 Chief complaint: fever HPI: Jose Cutler is a 67-year-old male who presented to [facility] emergency department for further evaluation of fever. He states that a few weeks ago, he removed a tick to his right groin. By the time it was removed, it was about a quarter inch in diameter, and there was a circular brown colored bruise surrounding the bite area. About 1-1/2 weeks later, a small, non- engorged tick was removed from his left groin. He thinks the ticks occurred during harvest. His states that the tick on his left groin had a white marking on its back. He had been doing fairly well until January 02, when in the afternoon. He came in from working complaining of feeling dizzy, very tired and unsteady on his feet. His was concerned he had heat exhaustion. She gave him some Tylenol or ibuprofen and he went to lie down. When he awoke, he was a bit disoriented to time, thinking it was the next day, when in fact he had woke at 6 PM the same day. He began having fever and chills, which was 102.8 at 0330 on 01/04/18. He had mild body aches and a slight headache. He denied neck pain, joint pain or joint swelling. With even light exertion, he became weak and shaky. He also noticed a little bit of visual changes. 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 He began having nausea and vomiting, and had not ate or drank anything for it the last couple of days. He has not been able to keep his medications down. He has had a mild cough, which isn't anything new. 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 He denies current sinus problems or throat or dysphagia. He denies chest pain, palpitations or shortness of breath. He denies any paresthesias or unilateral weakness. He denies any rashes or extremity injuries. He denies any unusual bruising or bleeding. In the emergency department, he was tachycardic with a heart rate of 103, and tachypneic with a respiratory rate of 22. His temperature was 100.2. White count was elevated at 18.1 with a left shift including 19% bands. His platelet count was low at 84,000. His lactate was elevated at 2.7 at 13.59. BUN is elevated at 43 and creatinine was high at 2.1. LFTs were normal. Creatinine kinase was elevated at 479. Urinalysis was negative for UTI, but did indicate dehydration with a high specific gravity. There was also occult blood and 2+ bacteria, though he denied new urinary symptoms (patient does have prostate problems, thus chronically has urinary flow issues). Chest x-ray was unremarkable. Blood cultures were sent. He was started on cefepime in the emergency department. The hospitalist service was notified and the patient was placed sent to inpatient status for further treatment of severe sepsis with uncertain etiology. Length of stay is expected to exceed 2 overnights. Review of Systems All systems PM: 10-point ROS was reviewed, no additional remarkable complaints except - Constitutional Constitutional: Present: as per HPI - EENMT Eyes: Present: as per HPI Nose: Present: as per HPI Mouth/Throat: Present: as per HPI - Cardiovascular Cardiovascular: Present: as per HPI Vascular: Present: see HPI - Respiratory Respiratory: Present: as per HPI - Gastrointestinal Gastrointestinal: Present: as per HPI - Genitourinary Genitourinary: Present: as per HPI - Musculoskeletal Musculoskeletal: Present: as per HPI - Integumentary/Breasts Integumentary: Present: as per HPI - Neurological Neurological: Present: as per HPI - Psychiatric Psychiatric: Absent: anxiety, depression - Endocrine Endocrine: Present: as per HPI - Hematologic/Lymphatic Hematologic/Lymphatic: Present: as per HPI - Allergic/Immunologic Allergic/Immunologic: Present: other (possible allergies to dust and mold) Past Medical History Medical History Updates: Postsurgical hypothyroidism. Hyperlipidemia. Hypertension. Vitamin B12, D deficiencies. Kidney stones. BPH Surgical History: Thyroidectomy for precancerous finding in 2013. Kidney stones. Tonsillectomy as a child Family History Updates: Mother is 87 years old. She has a history of goiter. She also had a venous thrombosis requiring a gamma knife procedure. She is still living at age 87. Father is 88 years old. He has had a valve replacement. He also has prostate problems. He has 2 sisters. One sister has hypertension, hyperlipidemia, and thyroid problems. His other sister has thyroid problems. Family History: As Above - Social History Smoking status: Never smoker Substance use type: does not use Alcohol intake frequency: does not drink Housing: house Household members: spouse Current occupational status: employed Current occupation: [employer] Medications Home Medications Medication Instructions Recorded Confirmed Type Acetaminophen 650 mg PO Q4H PRN 01/04/18 01/04/18 History Atorvastatin [Lipitor] 20 mg PO HS 01/04/18 01/04/18 History Cholecalciferol (Vitamin D3) 2,000 unit PO DAILY 01/04/18 01/04/18 History [Vitamin D3] Cyanocobalamin (Vitamin B-12) 2,500 mcg SL DAILY 01/04/18 01/04/18 History [Vitamin B-12] Ibuprofen [Advil] 400 mg PO Q4H PRN 01/04/18 01/04/18 History Levothyroxine Sodium 137 mcg PO DAILY 01/04/18 01/04/18 History Losartan [Cozaar] 50 mg PO DAILY 01/04/18 01/04/18 History Allergies Allergy/AdvReac Type Severity Reaction Status Date / Time amoxicillin Allergy Hives Verified 01/04/18 12:12 Exam Vital Signs: Temperature 97.4 F 01/04/18 14:49 Pulse Rate 88 01/04/18 14:44 Respiratory Rate 20 01/04/18 14:44 Blood Pressure 116/68 01/04/18 14:44 Pulse Oximetry 95 01/04/18 14:44 Height/Weight/BMI: Height 1.88 m Weight 95 kg Body Mass Index 26.9 - Constitutional Present: no acute distress, well nourished, well developed - Routine HEENT Exam Head: Present: normocephalic Eye: Present: PERRL. Absent: conjunctival icterus, scleral injection ENT: Present: mucous membranes moist, oropharynx clear - Routine Neck Exam Present: supple. Absent: lymphadenopathy - Routine Respiratory Exam Present: CTA bilaterally - Routine Cardiovascular Exam Present: RRR, S1, S2 - Routine Abdominal Exam Present: soft, normoactive bowel sounds, non distended, non tender. Absent: organomegaly - Routine Extremities Exam Present: no edema - Routine Back/Spine/Pelvis Exam Back/Spine: Present: full ROM - Routine Skin Exam Present: intact, dry, warm. Absent: petechiae, ecchymosis Comments: No lesions noted to Bilateral inguinal areas. - Routine Neurological Exam Present: alert, oriented X3, CN II-XII intact, moving all extremities, vision grossly intact, hearing grossly intact, normal speech. Absent: sensory deficit , motor deficit, altered mental status, facial asymmetry - Routine Psychiatric Exam Present: normal affect, normal thought process, cooperative Results - Labs CBC & Chem 7: 01/04/18 12:06 01/04/18 12:06 - Imaging and Cardiology Chest x-ray Status: image reviewed by me Additional comments: No evidence of pneumonia or failure Assessment and Plan (1) Tick bite Current visit: Yes Status: Acute Assessment and Plan: Assessment Severe sepsis with SIRS criteria of leukocytosis, bandemia, tachycardia, tachypnea, fever. Organ dysfunction: Elevated lactate at 2.8. Suspect tick borne illness WILLIAM, hematuria Mold/dust exposure Postsurgical hypothyroidism Hyperlipidemia Hypertension Vitamin B12, D deficiencies Kidney stones. BPH Plan Admit, inpatient status under the hospitalist service. Tick borne illness is at top of differentials to explain his sepsis and symptomatology. Change antibiotics to doxycycline 100 mg BID. Tick panel has been ordered. Follow results of blood culture. Repeat lactate is showing a downward trend and is currently normal at 1.4. Will repeat procalcitonin tomorrow morning. Continue with normal saline at 130 ml/hour for acute kidney injury and dehydration. Hold losartan. Trend white count and platelet count. With elevated CK, hold statin. LFTs were normal on admission. Advanced directives were discussed with the patient and his . He would like to complete DPOA and living will during hospitalization. CODE STATUS: Full code. Consult case management to facilitate completion of advanced directives. PCP: Dr. Nuñez. Findings and plan were discussed with Dr. Guzman. I have seen and examined the patient independently of the midlevel above. I agree with the assesment and plan noted above. Patient notes that he has a chronically low platelet count for a condition he follows with Dr. Khalil for. He is unaware of his baseline platelet number though. Gen: A&OX3. NAD. HEENT: nc/at. PERRL/EOMI. neck supple CV: RRR, no murmur Lungs: CTAB, NO w/r/r ABdomen: soft, NT, ND, + BS, no organomegaly Ext: no c/c/e. + pulses Skin: w/d/i, no rash Neuro: CN II-XII GIB. Sensation normal. no meningeal signs. Start doxycycline as above. Blood cultures and tick panel pending. IVF and monitor Creatinine and UOP. Avoid NSAIDs and hold home losartan. DVT Prophylaxis: SCD's Resuscitation Status: Full Code - Physician Narrative Narrative: Date: 01/04/18 Time: 1623 Hospital Course Summary Disclaimer: The visit summary below is not to be considered part of the above Progress Note. Hospital Course: 01/04/18 Admit, inpatient status under the hospitalist service. Tick borne illness is at top of differentials to explain his sepsis and symptomatology. Change antibiotics to doxycycline 100 mg BID. Tick panel has been ordered. Follow results of blood culture. Repeat lactate is showing a downward trend and is currently normal at 1.4. Will repeat procalcitonin tomorrow morning. Continue with normal saline at 130 ml/hour for acute kidney injury and dehydration. Hold losartan. Trend white count and platelet count. With elevated CK, hold statin. LFTs were normal on admission. Advanced directives were discussed with the patient and his . He would like to complete DPOA and living will during hospitalization. CODE STATUS: Full code. Consult case management to facilitate completion of advanced directives
[2018-01-04] MEDS: ACETAMINOPHEN 325 MG TABLET PO PRN (18:36)
[2018-01-05] MEDS: NS 1,000 ML IV SCH ×4 (01:13→22:38)
[2018-01-05] MEDS: ACETAMINOPHEN 325 MG TABLET PO PRN ×4 (01:18→21:20)
[2018-01-05] MEDS ORDERED: DOXYCYCLINE 100 MG in NS 250ml 250 ML IV SCH (04:00)
[2018-01-05] MEDS: LEVOTHYROXINE 137 MCG TABLET PO SCH (07:16)
[2018-01-05] MEDS: ONDANSETRON 4 MG/2 ML INJECTION IVP PRN (07:23)
--- NOTE | 2018-01-05 10:15 | XRay Report ---
INDICATION: fever PROCEDURE: CHEST 2-VIEWS UPRIGHT (PA & LAT) Encounter: Initial COMPARISON: None FINDINGS: The lungs are clear without evidence of focal abnormal airspace opacity. There is no pleural effusion or pneumothorax. The heart size, mediastinal contours and pulmonary vascularity are within normal limits. There is no significant skeletal abnormality. IMPRESSION: No acute cardiopulmonary disease. .
--- NOTE | 2018-01-05 10:46 | Progress Note ---
- Date 01/05/18 Subjective: Jose is seen in follow up. Is feeling a bit better- still has a headache, but reports that APAP is helping quite a bit. Slept fairly well, but woke up early and continues to feel tired. Chart is reviewed- TMax 102.0 overnight. Patient denies any cough or congestion. No GI c/o reported. Objective Vital signs: Temperature 97.8 F 01/05/18 07:49 Pulse Rate 84 01/05/18 07:49 Respiratory Rate 16 01/05/18 07:49 Blood Pressure 145/85 H 01/05/18 07:49 Pulse Oximetry 97 01/05/18 07:49 Height/Weight/BMI: Height 1.88 m Weight 95.6 kg Body Mass Index 26.9 - Constitutional Present: no acute distress, well nourished, well developed, cooperative - Routine HEENT Exam Head: Present: normocephalic, atraumatic Eye: Present: EOMI, PERRL ENT: Present: mucous membranes dry - Routine Respiratory Exam Present: CTA bilaterally. Absent: rales, rhonchi, wheezes, crackles - Routine Cardiovascular Exam Present: RRR, S1, S2, no murmur - Routine Abdominal Exam Present: soft, normoactive bowel sounds, non distended, non tender - Routine Extremities Exam Present: no edema, non tender - Routine Back/Spine/Pelvis Exam Back/Spine: Present: full ROM - Routine Musculoskeletal Exam Musculoskeletal: Present: no clubbing or cyanosis, moving extremities well - Routine Skin Exam Present: intact, dry, warm - Routine Neurological Exam Present: alert, oriented X3, moving all extremities, normal speech. Absent: altered mental status, facial asymmetry - Routine Psychiatric Exam Present: normal affect, normal thought process, cooperative Results - Labs CBC & Chem 7: 01/05/18 03:58 01/05/18 03:58 Microbiology Results: Microbiology 01/04/18 12:36 Blood Culture - Preliminary Peripheral/Iv Start Culture Initiated - Results Pending 01/04/18 12:06 Blood Culture - Preliminary Peripheral/Iv Start Culture Initiated - Results Pending Assessment and Plan (1) Tick bite Current visit: Yes Status: Acute Assessment and Plan: Assessment Severe sepsis with SIRS criteria of leukocytosis, bandemia, tachycardia, tachypnea, fever. Organ dysfunction: Elevated lactate at 2.8. Suspect tick borne illness WILLIAM, hematuria Mold/dust exposure Postsurgical hypothyroidism Hyperlipidemia Hypertension Vitamin B12, D deficiencies Kidney stones. BPH Plan 01/05/18 Presumed tick-borne illness. Slow improvement overnight. Tick-borne panel is pending. Leukocytosis, bandemia, elevated procalcitonin are improved, but will need close follow up. Continue doxycycline- oral dosing due to IV shortage. Continue aggressive IVF- WILLIAM is improving as well. Avoid NSAIDs, hold ARB. BP is variable- monitor for now. Add some low dose [place] if needed for pain given persistent CARABALLO. Continue Synthroid for hypothyroidism. Mildly elevated CPK- trending down. Continue supportive care. Chart, labs, imaging reviewed. I have seen and examined the patient independent of the midlevel above. I agree with the assessment and plan. Complains of headache today. Made significant urine overnight. Still feels like appetite is poor. Gen: Alert and oriented X 3. NAD. HEENT: nc/at. PERRL/EOMI. neck supple. CV: RRR, no murmur Lungs: CTAB, no w/r/r Abd: soft, NT, ND, + BS Ext: no c/c/e. + pulses Neuro: CN II- XII GIB, no focal signs. no cerebellar signs. sensation intact Skin: w/d/i. no rash. Continue treatment for presumed tick borne illness as clinical scenario is relevant and condition is improving. Decrease IVF to 100ml/hr continue doxy - oral due to shortage Patient has chronically low platelets - baseline uncertain, follows with Dr. Khalil. Follow WBC, bands, renal function, pct in am. DVT Prophylaxis: SCD's Resuscitation Status: Full Code - Physician Narrative Narrative: Date: 01/05/18 Time: 1043 Hospital Course Summary Disclaimer: The visit summary below is not to be considered part of the above Progress Note. Hospital Course: 01/04/18 Admit, inpatient status under the hospitalist service. Tick borne illness is at top of differentials to explain his sepsis and symptomatology. Change antibiotics to doxycycline 100 mg BID. Tick panel has been ordered. Follow results of blood culture. Repeat lactate is showing a downward trend and is currently normal at 1.4. Will repeat procalcitonin tomorrow morning. Continue with normal saline at 130 ml/hour for acute kidney injury and dehydration. Hold losartan. Trend white count and platelet count. With elevated CK, hold statin. LFTs were normal on admission. Advanced directives were discussed with the patient and his . He would like to complete DPOA and living will during hospitalization. CODE STATUS: Full code. Consult case management to facilitate completion of advanced directives
[2018-01-05] MEDS ORDERED: HYDROCODONE/APAP 5mg/325mg TABLET PO PRN (10:47)
[2018-01-06] MEDS: ONDANSETRON 4 MG/2 ML INJECTION IVP PRN (03:35)
[2018-01-06] MEDS: NS 1,000 ML IV SCH ×2 (05:22→15:30)
[2018-01-06] MEDS: LEVOTHYROXINE 137 MCG TABLET PO SCH (05:37)
[2018-01-06] MEDS: ACETAMINOPHEN 325 MG TABLET PO PRN ×2 (07:50→15:32)
--- NOTE | 2018-01-06 12:19 | Progress Note ---
- Date 01/06/18 Subjective: Jose did not sleep well last night - he finally fell asleep between [id number]. He feels very tired this morning. He feels unsteady when he has a fever, Tmax 102.6 this am and his describes rigors with fever. He was vomiting last night but the Zofran is helpful and nausea is better currently. He still has a headache. He denies chest pain or SOA. He feels slightly constipated. notes intermittent confusion, repetitive statements. His left eye is "irritated " and was stinging earlier. He denies any drainage. Objective Vital signs: Temperature 97.9 F 01/06/18 11:52 Pulse Rate 67 01/06/18 11:52 Respiratory Rate 18 01/06/18 11:52 Blood Pressure 142/88 H 01/06/18 11:52 Pulse Oximetry 96 01/06/18 11:52 Height/Weight/BMI: Height 1.88 m Weight 98.5 kg Body Mass Index 26.9 - Constitutional Present: no acute distress, well nourished, well developed - Routine HEENT Exam Head: Present: normocephalic Eye: Present: PERRL, scleral injection (mild, left). Absent: conjunctival icterus - Routine Respiratory Exam Present: CTA bilaterally - Routine Cardiovascular Exam Present: RRR, S1, S2 - Routine Abdominal Exam Present: soft, normoactive bowel sounds, non distended, non tender - Routine Extremities Exam Present: no edema - Routine Back/Spine/Pelvis Exam Back/Spine: Present: full ROM - Routine Musculoskeletal Exam Musculoskeletal: Present: moving extremities well - Routine Skin Exam Present: intact, dry, warm - Routine Neurological Exam Present: alert, oriented X3, CN II-XII intact, normal speech - Routine Psychiatric Exam Present: normal affect, normal thought process, cooperative Results - Labs CBC & Chem 7: 01/06/18 04:24 01/06/18 04:24 Assessment and Plan (1) Tick bite Current visit: Yes Status: Acute Assessment and Plan: Assessment Severe sepsis with SIRS criteria of leukocytosis, bandemia, tachycardia, tachypnea, fever. Organ dysfunction: Elevated lactate at 2.8. Suspect tick borne illness WILLIAM, resolved hematuria Mold/dust exposure Postsurgical hypothyroidism Hyperlipidemia Hypertension Vitamin B12, D deficiencies Kidney stones. BPH Plan 01/06/18 Tmax 102.6 this am. WBC improved to 11.8, procal down to 4.87. Plt improved to 89 - follows w/ Dr. Khalil for thrombocytopenia x ~6 years - no formal dx. Cont doxycycline. WILLIAM resolved, cr. 1.2. Reduce rate of IVF. Hold off on losartan at this time, possibly restart soon. CK normal, 75. Cont symptomatic care for nausea, headache. DVT Prophylaxis: SCD's Resuscitation Status: Full Code - Time spent with patient Time with patient PN: 25 minutes - Physician Narrative Physician: Reilly Santos MD Narrative: Date: 01/06/18 Time: 1425 Have independently interviewed & examined pt. Chart reviewed. Case discussed with CM, pt's , and my [employer]. Care plan developed with my supervision; agree with above. Still feels rough-chills and shakes. Tried to eat, but became very nauseated and about had emesis. Taking small sips of water without problems. Notes urine output increasing and not as dark. Breathing okay-notes slight shortness, but not congested. Rare cough. Lungs: decreased, no distress CV: regular AB: soft nt/nd BS decreased EXT: no edema MSE: awake alert Plan: Will continue with doxycycline for antimicrobial coverage. Need to continue IVF as oral drive still very decreased - renal status improving. Continue with nausea control. Monitor lab. Encourage increasing activities as able--still very weak and debilitated. Discussed with patient that he will likely need several weeks of recovery at home before he is feeling 100% to health. Hospital Course Summary Disclaimer: The visit summary below is not to be considered part of the above Progress Note. Hospital Course: 01/04/18 Admit, inpatient status under the hospitalist service. Tick borne illness is at top of differentials to explain his sepsis and symptomatology. Change antibiotics to doxycycline 100 mg BID. Tick panel has been ordered. Follow results of blood culture. Repeat lactate is showing a downward trend and is currently normal at 1.4. Will repeat procalcitonin tomorrow morning. Continue with normal saline at 130 ml/hour for acute kidney injury and dehydration. Hold losartan. Trend white count and platelet count. With elevated CK, hold statin. LFTs were normal on admission. Advanced directives were discussed with the patient and his . He would like to complete DPOA and living will during hospitalization. CODE STATUS: Full code. Consult case management to facilitate completion of advanced directives 01/05/18 Continue treatment for presumed tick borne illness as clinical scenario is relevant and condition is improving. Decrease IVF to 100ml/hr continue doxy - oral due to shortage Patient has chronically low platelets - baseline uncertain, follows with Dr. Khalil. 01/06/18 Tmax 102.6 this am. WBC improved to 11.8, procal down to 4.87. Plt improved to 89 - follows w/ Dr. Khlail for thrombocytopenia x ~6 years - no formal dx. Cont doxycycline. WILLIAM resolved, cr. 1.2. Reduce rate of IVF. Hold off on losartan at this time, possibly restart soon. CK normal, 75.
[2018-01-06] MEDS ORDERED: NAPHAZOLINE EACH EYE PRN (12:20)
[2018-01-06] MEDS ORDERED: PHENIRAMINE EACH EYE PRN (12:20)
[2018-01-06] MEDS ORDERED: POLYETHYL GLYCOL 3350 17gm PACKET PO PRN (12:21)
[2018-01-07] MEDS: ONDANSETRON 4 MG/2 ML INJECTION IVP PRN ×3 (01:04→18:21)
[2018-01-07] MEDS: ACETAMINOPHEN 325 MG TABLET PO PRN ×4 (02:43→22:04)
[2018-01-07] MEDS: LEVOTHYROXINE 137 MCG TABLET PO SCH (08:05)
--- NOTE | 2018-01-07 10:44 | Progress Note ---
- Date 01/07/18 Subjective: F/U: Severe sepsis, Suspect tick borne illness, WILLIAM Rough night - had temp elevation and nausea with emesis. Trying to stay on top of symptoms-initiating oral Tylenol when he feels the shaking being. Will use antiemetic prior to eating. Able to sit up on side of bed and have bites of foods. Still feels weak in general but wanting to try to be more active. Breathing stable. Urinating well. Objective Vital signs: Temperature 98.7 F 01/07/18 07:56 Pulse Rate 82 01/07/18 07:56 Respiratory Rate 16 01/07/18 07:56 Blood Pressure 174/91 H 01/07/18 07:56 Pulse Oximetry 98 01/07/18 07:56 Height/Weight/BMI: Height 1.88 m Weight 99.8 kg Body Mass Index 26.9 - Constitutional Present: well nourished, well developed, average body habitus, cooperative - Routine HEENT Exam Head: Present: normocephalic, atraumatic Eye: Present: EOMI, PERRL ENT: Present: mucous membranes moist - Routine Respiratory Exam Present: decreased breath sounds. Absent: rales, respiratory distress, rhonchi , stridor, wheezes, crackles - Routine Cardiovascular Exam Present: RRR, no murmur - Routine Abdominal Exam Present: soft, normoactive bowel sounds, non distended, non tender - Routine Extremities Exam Present: cyanosis, clubbing Comments: SCD in place - Routine Skin Exam Present: dry, warm - Routine Neurological Exam Present: alert, oriented X3, CN II-XII intact, vision grossly intact, hearing grossly intact, normal speech. Absent: motor deficit, altered mental status - Routine Psychiatric Exam Present: normal affect, normal thought process, cooperative Results - Labs CBC & Chem 7: 01/07/18 03:45 01/07/18 03:45 Microbiology Results: Microbiology 01/04/18 12:36 Peripheral/Iv Start Blood Culture - Preliminary No Growth After 2 Days 01/04/18 12:06 Peripheral/Iv Start Blood Culture - Preliminary No Growth After 2 Days Assessment and Plan (1) Tick bite Current visit: Yes Status: Acute Assessment and Plan: Assessment Severe sepsis with SIRS criteria of leukocytosis, bandemia, tachycardia, tachypnea, fever. Organ dysfunction: Elevated lactate at 2.8. Suspect tick borne illness WILLIAM, resolved hematuria Mold/dust exposure Postsurgical hypothyroidism Hyperlipidemia Hypertension Vitamin B12, D deficiencies Kidney stones. BPH Plan Continue with doxycycline for antimicrobial coverage. Will decrease IVF to 40cc/hr as oral drive increasing. Continue acetaminophen and antiemetics for symptom control. Encourage increasing activities as able. Renal status stable. BP elevated. Would continue to hold losartan due to resolving WILLIAM. Recheck CBC and BMP in am due to resolving sepsis and WILLIAM. Discussed case at length with patient. Discussed treatment plan and medication use. Time spent with patient care 35 minutes. DVT Prophylaxis: SCD's Resuscitation Status: Full Code - Time spent with patient Time with patient PN: 35 minutes - Physician Narrative Physician: Reilly Santos MD Narrative: Date: 01/07/18 Time: 1041 Hospital Course Summary Disclaimer: The visit summary below is not to be considered part of the above Progress Note. Hospital Course: 01/04/18 Admit, inpatient status under the hospitalist service. Tick borne illness is at top of differentials to explain his sepsis and symptomatology. Change antibiotics to doxycycline 100 mg BID. Tick panel has been ordered. Follow results of blood culture. Repeat lactate is showing a downward trend and is currently normal at 1.4. Will repeat procalcitonin tomorrow morning. Continue with normal saline at 130 ml/hour for acute kidney injury and dehydration. Hold losartan. Trend white count and platelet count. With elevated CK, hold statin. LFTs were normal on admission. Advanced directives were discussed with the patient and his . He would like to complete DPOA and living will during hospitalization. CODE STATUS: Full code. Consult case management to facilitate completion of advanced directives 01/05/18 Continue treatment for presumed tick borne illness as clinical scenario is relevant and condition is improving. Decrease IVF to 100ml/hr continue doxy - oral due to shortage Patient has chronically low platelets - baseline uncertain, follows with Dr. Khalil. 01/06/18 Tmax 102.6 this am. WBC improved to 11.8, procal down to 4.87. Plt improved to 89 - follows w/ Dr. Khalil for thrombocytopenia x ~6 years - no formal dx. Cont doxycycline. WILLIAM resolved, cr. 1.2. Reduce rate of IVF. Hold off on losartan at this time, possibly restart soon. CK normal, 75. 01/07/18 Still having temp elevations. Nausea varies-oral intake ability slowly increasing. Leukocytosis normalized. Platelets increasing. Continue with doxycycline for antimicrobial coverage. Will decrease IVF to 40cc/hr as oral drive increasing. Continue acetaminophen and antiemetics for symptom control. Encourage increasing activities as able. Renal status stable. BP elevated. Would continue to hold losartan due to resolving WILLIAM. Creatinine 1.2 today. Recheck CBC and BMP in am due to resolving sepsis and WILLIAM.
[2018-01-07] MEDS ORDERED: PROCHLORPERAZINE 10 MG/2 ML INJECTION IVP PRN (11:50)
[2018-01-07] MEDS ORDERED: NS 1,000 ML IV SCH (12:00)
[2018-01-07] MEDS: KETOROLAC 15 MG/ML INJECTION IVP PRN ×2 (12:27→18:25)
[2018-01-08] MEDS: KETOROLAC 15 MG/ML INJECTION IVP PRN ×2 (00:13→14:31)
[2018-01-08] MEDS: ONDANSETRON 4 MG/2 ML INJECTION IVP PRN (00:14)
[2018-01-08] MEDS: ACETAMINOPHEN 325 MG TABLET PO PRN ×4 (04:31→23:50)
[2018-01-08] MEDS: LEVOTHYROXINE 137 MCG TABLET PO SCH (06:13)
--- NOTE | 2018-01-08 11:05 | Progress Note ---
- Date 01/08/18 Subjective: Mr Cutler is seen this morning in follow up. He is overall feeling better however reports had chills and shakes again overnight. He states that he did not have a fever however continues to take routine Toradol and Tylenol. Continues to have intermittent headaches and have nausea. He was able to eat breakfast this morning without vomit however overall appetite remains low. He complaint of pain to the right arm as he does have some swelling distal to the IV line. Objective Vital signs: Temperature 98.7 F 01/08/18 08:05 Pulse Rate 66 01/08/18 08:05 Respiratory Rate 18 01/08/18 08:05 Blood Pressure 153/79 H 01/08/18 08:05 Pulse Oximetry 95 01/08/18 08:05 Height/Weight/BMI: Height 1.88 m Weight 99.8 kg Body Mass Index 26.9 - Constitutional Present: no acute distress, well nourished, well developed - Routine HEENT Exam Eye: Present: EOMI ENT: Present: mucous membranes moist, dentition normal - Routine Respiratory Exam Present: CTA bilaterally. Absent: wheezes - Routine Cardiovascular Exam Present: RRR, S1, S2. Absent: murmur - Routine Abdominal Exam Present: soft, normoactive bowel sounds, non distended. Absent: tenderness - Routine Extremities Exam Present: no edema - Routine Skin Exam Present: intact, dry, warm - Routine Neurological Exam Present: alert, oriented X3, CN II-XII intact, moving all extremities - Routine Lymphatic Exam Lymphatic: Absent: adenopathy - Routine Psychiatric Exam Present: normal affect, cooperative Results - Labs CBC & Chem 7: 01/08/18 04:24 01/08/18 04:24 Microbiology Results: Microbiology 01/04/18 12:36 Peripheral/Iv Start Blood Culture - Preliminary No Growth After 3 Days 01/04/18 12:06 Peripheral/Iv Start Blood Culture - Preliminary No Growth After 3 Days Assessment and Plan (1) Tick bite Current visit: Yes Status: Acute Assessment and Plan: Assessment Severe sepsis with SIRS criteria of leukocytosis, bandemia, tachycardia, tachypnea, fever. Organ dysfunction: Elevated lactate at 2.8. Suspect tick borne illness Thrombocytopenia- POA WILLIAM, resolved hematuria Mold/dust exposure Postsurgical hypothyroidism Hyperlipidemia Hypertension Vitamin B12, D deficiencies Kidney stones. BPH Plan Will discontinue IV fluids Have nursing staff change IV site due to swelling and discomfort in right hand Continues to require IV Toradol and PO Tylenol for pain control Zofran and Compazine for nausea Encouraged ambulation QID. Continue with doxycycline for antimicrobial coverage. Suspect Tick illness- lab pending Thrombocytopenia slowly improving Resuscitation Status: Full Code - Time spent with patient Time with patient PN: 25 minutes - Physician Narrative Physician: Reilly Santos MD Narrative: Date: 01/08/18 Time: 1535 Have independently interviewed and examined pt. Chart reviewed. Case discussed with CM and my [employer]. Care plan developed with my supervision; agree with above. Doing better today. Able to eat and drink more without nausea. Passing small amounts of stool. Still has CARABALLO-meds help. Temp elevation to 101.2 last night. Was able to take a shower this am without having episode of chills. Moving more in halls. Breathing well. Lungs: clear, no distress on RA. CV: regular without murmur. AB: soft nt/nd + BS MSE: awake alert appropriate Plan: Continue with doxycycline. Serology pending, but patient making clinical improvements. Continue symptom control. Encourage increased activities and oral intake as able. Monitor lab. Hope for home soon as temp elevations decreasing. Hospital Course Summary Disclaimer: The visit summary below is not to be considered part of the above Progress Note. Hospital Course: 01/04/18 Admit, inpatient status under the hospitalist service. Tick borne illness is at top of differentials to explain his sepsis and symptomatology. Change antibiotics to doxycycline 100 mg BID. Tick panel has been ordered. Follow results of blood culture. Repeat lactate is showing a downward trend and is currently normal at 1.4. Will repeat procalcitonin tomorrow morning. Continue with normal saline at 130 ml/hour for acute kidney injury and dehydration. Hold losartan. Trend white count and platelet count. With elevated CK, hold statin. LFTs were normal on admission. Advanced directives were discussed with the patient and his . He would like to complete DPOA and living will during hospitalization. CODE STATUS: Full code. Consult case management to facilitate completion of advanced directives 01/05/18 Continue treatment for presumed tick borne illness as clinical scenario is relevant and condition is improving. Decrease IVF to 100ml/hr continue doxy - oral due to shortage Patient has chronically low platelets - baseline uncertain, follows with Dr. Khalil. 01/06/18 Tmax 102.6 this am. WBC improved to 11.8, procal down to 4.87. Plt improved to 89 - follows w/ Dr. Khalil for thrombocytopenia x ~6 years - no formal dx. Cont doxycycline. WILLIAM resolved, cr. 1.2. Reduce rate of IVF. Hold off on losartan at this time, possibly restart soon. CK normal, 75. 01/07/18 Still having temp elevations. Nausea varies-oral intake ability slowly increasing. Leukocytosis normalized. Platelets increasing. Continue with doxycycline for antimicrobial coverage. Will decrease IVF to 40cc/hr as oral drive increasing. Continue acetaminophen and antiemetics for symptom control. Encourage increasing activities as able. Renal status stable. BP elevated. Would continue to hold losartan due to resolving WILLIAM. Creatinine 1.2 today. Recheck CBC and BMP in am due to resolving sepsis and WILLIAM. 01/08/18 Will discontinue IV fluids Have nursing staff change IV site due to swelling and discomfort in right hand Continues to require IV Toradol and PO Tylenol for pain control Zofran and Compazine for nausea Encouraged ambulation QID. Continue with doxycycline for antimicrobial coverage. Suspect Tick illness- lab pending Thrombocytopenia slowly improving
[2018-01-08] MEDS: SALINE FLUSH 10ml SYRINGE IVF PRN (14:32)
[2018-01-08 15:52] VITALS: O2SAT 96
[2018-01-09] MEDS: LEVOTHYROXINE 137 MCG TABLET PO SCH (06:02)
[2018-01-09] MEDS: SALINE FLUSH 10ml SYRINGE IVF PRN (06:02)
[2018-01-09 08:07] VITALS: BP 156/76; RESP 16
[2018-01-09 08:34] VITALS: PULSE 67
--- NOTE | 2018-01-09 10:46 | Discharge Summary ---
Discharge Information Date of admission: 01/04/18 14:18 Attending Physician: Reilly Santos MD Primary care physician: Gildardo Nuñez MD Consults: None - Discharge Diagnosis (1) Tick bite Status: Acute Discharge diagnosis Severe sepsis with SIRS criteria of leukocytosis, bandemia, tachycardia, tachypnea, fever. Organ dysfunction: Elevated lactate at 2.8. Associated conditions and complications Suspect tick borne illness Thrombocytopenia- POA WILLIAM, resolved Stage III CKD Hematuria Mold/dust exposure Postsurgical hypothyroidism Hyperlipidemia Hypertension Vitamin B12, D deficiencies Kidney stones BPH - Procedures Procedures: None - Laboratory Labs: 01/09/18 04:22 01/09/18 04:22 - Microbiology Microbiology 01/04/18 12:36 Peripheral/Iv Start Blood Culture - Preliminary No Growth After 4 Days 01/04/18 12:06 Peripheral/Iv Start Blood Culture - Preliminary No Growth After 4 Days - Radiology Radiology: 01/04/18- Chest Xray- No acute process - Pathology None History of Present Illness HPI: Jose Cutler is a 67-year-old male who presented to [facility] emergency department for further evaluation of fever. He states that a few weeks ago, he removed a tick to his right groin. By the time it was removed, it was about a quarter inch in diameter, and there was a circular brown colored bruise surrounding the bite area. About 1-1/2 weeks later, a small, non- engorged tick was removed from his left groin. He thinks the ticks occurred during harvest. His states that the tick on his left groin had a white marking on its back. He had been doing fairly well until January 02, when in the afternoon. He came in from working complaining of feeling dizzy, very tired and unsteady on his feet. His was concerned he had heat exhaustion. She gave him some Tylenol or ibuprofen and he went to lie down. When he awoke, he was a bit disoriented to time, thinking it was the next day, when in fact he had woke at 6 PM the same day. He began having fever and chills, which was 102.8 at 0330 on 01/04/18. He had mild body aches and a slight headache. He denied neck pain, joint pain or joint swelling. With even light exertion, he became weak and shaky. He also noticed a little bit of visual changes. 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 He began having nausea and vomiting, and had not ate or drank anything for it the last couple of days. He has not been able to keep his medications down. He has had a mild cough, which isn't anything new. 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 He denies current sinus problems or throat or dysphagia. He denies chest pain, palpitations or shortness of breath. He denies any paresthesias or unilateral weakness. He denies any rashes or extremity injuries. He denies any unusual bruising or bleeding. In the emergency department, he was tachycardic with a heart rate of 103, and tachypneic with a respiratory rate of 22. His temperature was 100.2. White count was elevated at 18.1 with a left shift including 19% bands. His platelet count was low at 84,000. His lactate was elevated at 2.7 at 13.59. BUN is elevated at 43 and creatinine was high at 2.1. LFTs were normal. Creatinine kinase was elevated at 479. Urinalysis was negative for UTI, but did indicate dehydration with a high specific gravity. There was also occult blood and 2+ bacteria, though he denied new urinary symptoms (patient does have prostate problems, thus chronically has urinary flow issues). Chest x-ray was unremarkable. Blood cultures were sent. He was started on cefepime in the emergency department. The hospitalist service was notified and the patient was placed sent to inpatient status for further treatment of severe sepsis with uncertain etiology. Length of stay is expected to exceed 2 overnights. Objective Vital signs: Temperature 98.6 F 01/09/18 08:32 Pulse Rate 67 01/09/18 08:32 Respiratory Rate 16 01/09/18 08:32 Blood Pressure 156/76 H 01/09/18 08:32 Pulse Oximetry 96 01/09/18 08:32 Height/Weight/BMI: Height 1.88 m Weight 98.8 kg Body Mass Index 26.9 - Constitutional Present: no acute distress, well nourished, well developed - Routine HEENT Exam Eye: Present: EOMI ENT: Present: mucous membranes moist, dentition normal - Routine Respiratory Exam Present: CTA bilaterally. Absent: wheezes - Routine Cardiovascular Exam Present: RRR, S1, S2. Absent: murmur - Routine Abdominal Exam Present: soft, normoactive bowel sounds, non distended. Absent: tenderness - Routine Extremities Exam Present: full ROM, normal capillary refill - Routine Back/Spine/Pelvis Exam Back/Spine: Present: full ROM - Routine Skin Exam Present: intact, dry, warm - Routine Neurological Exam Present: alert, oriented X3, CN II-XII intact, moving all extremities - Routine Lymphatic Exam Lymphatic: Absent: adenopathy - Routine Psychiatric Exam Present: normal affect, cooperative Hospital Course This is a general summary of the patient's hospital course. For more details refer to the complete medical record. Hospital course: 01/04/18 Admit, inpatient status under the hospitalist service. Tick borne illness is at top of differentials to explain his sepsis and symptomatology. Change antibiotics to doxycycline 100 mg BID. Tick panel has been ordered. Follow results of blood culture. Repeat lactate is showing a downward trend and is currently normal at 1.4. Will repeat procalcitonin tomorrow morning. Continue with normal saline at 130 ml/hour for acute kidney injury and dehydration. Hold losartan. Trend white count and platelet count. With elevated CK, hold statin. LFTs were normal on admission. Advanced directives were discussed with the patient and his . He would like to complete DPOA and living will during hospitalization. CODE STATUS: Full code. Consult case management to facilitate completion of advanced directives 01/05/18 Continue treatment for presumed tick borne illness as clinical scenario is relevant and condition is improving. Decrease IVF to 100ml/hr continue doxy - oral due to shortage Patient has chronically low platelets - baseline uncertain, follows with Dr. Khalil. 01/06/18 Tmax 102.6 this am. WBC improved to 11.8, procal down to 4.87. Plt improved to 89 - follows w/ Dr. Khalil for thrombocytopenia x ~6 years - no formal dx. Cont doxycycline. WILLIAM resolved, cr. 1.2. Reduce rate of IVF. Hold off on losartan at this time, possibly restart soon. CK normal, 75. 01/07/18 Still having temp elevations. Nausea varies-oral intake ability slowly increasing. Leukocytosis normalized. Platelets increasing. Continue with doxycycline for antimicrobial coverage. Will decrease IVF to 40cc/hr as oral drive increasing. Continue acetaminophen and antiemetics for symptom control. Encourage increasing activities as able. Renal status stable. BP elevated. Would continue to hold losartan due to resolving WILLIAM. Creatinine 1.2 today. Recheck CBC and BMP in am due to resolving sepsis and WILLIAM. 01/08/18 Will discontinue IV fluids Have nursing staff change IV site due to swelling and discomfort in right hand Continues to require IV Toradol and PO Tylenol for pain control Zofran and Compazine for nausea Encouraged ambulation QID. Continue with doxycycline for antimicrobial coverage. Suspect Tick illness- lab pending Thrombocytopenia slowly improving 01/09/18- Discharge Jose is seen and examined today prior to discharge. Overall he is feeling good today. His headache is mild and nausea is improved. He is feeling better today and feels ready to be discharged home. We discussed discharge plan inclusing . She will days of oral doxycycline to complete a 14 day course. We'll send patient with a prescription for Zofran ODT to assist with nausea, as this may be secondary to doxycycline. Recommended utilizing Tylenol, and naproxen for short-term use of headaches. It is important that patient rest and stay well hydrated. Would like him to follow with his primary care provider, Dr. Lorenzo Nuñez in 1 week. Did discuss with patient and signs and symptoms and when she patient needs to return acutely to [facility] including neurologic changes, severe headache, confusion, vomiting that is uncontrollable or other concerning symptoms. Patient and verbalize understanding. Patient is discharge in stable including Time spent with patient: discharge greater than 30 minutes Resuscitation Status: Full Code Discharge Plan - Discharge Disposition Discharge Date: 01/09/18 Disposition: 01 Discharged Home, Self-Care *Condition: Improved Reason For Visit (Visit label in EMR): Sepsis - Discharge Medications *Discharge Medications: New Ondansetron Odt [Zofran Odt Tablet] 4 mg PO Q6HR #30 tab Naproxen [Naprosyn 500 mg] 500 mg PO Q12HR PRN #20 tab PRN Reason: Pain Doxycycline [Vibramycin] 100 mg PO BIDWM 10 Days #20 tab Continue Levothyroxine Sodium 137 mcg PO DAILY Cholecalciferol (Vitamin D3) [Vitamin D3] 2,000 unit PO DAILY Losartan [Cozaar] 50 mg PO DAILY Atorvastatin [Lipitor] 20 mg PO HS Acetaminophen 650 mg PO Q4H PRN PRN Reason: Pain Cyanocobalamin (Vitamin B-12) [Vitamin B-12] 2,500 mcg SL DAILY Discontinued Ibuprofen [Advil] 400 mg PO Q4H PRN PRN Reason: Pain - Discharge Packet/Instructions *Diet: regular *Activity: as tolerated *Pain Management/Treatment: Tylenol every 4 hours as needed for pain. Naproxen 500 mg every 12 hours as needed for pain *Wound Care: N/A Additional Instructions: Take doxycycline antibiotic twice a day for 10 additional days. Use Zofran as needed for nausea. Take it easy and rest, stay well-hydrated *Expected Signs/Symptoms: Have low-grade fevers and intermittent headaches. You may continue to have nausea as this can be caused from the antibiotic. *Notify Physician if: Severe headaches that do not improve, vomiting that is not controlled with medications. Change in mental status, confusion, or other concerning symptoms *During Business Hours Contact: Contact primary care provider, Dr. Tsai *After Business Hours Contact: Contact on-call physician or present to the emergency room *Pending Lab/Results: Follow up w/your PCP - Referrals/Follow Up *Referrals/Follow Up: Gildardo Nuñez MD [Primary Care Provider] - (Please schedule follow-up appointment for one week) - Patient Handouts Patient Handouts: Tick Bite (GEN), Sepsis (GEN) - Dismissal Complete Discharge Instructions are:: Complete Physician Narrative - Narrative Physician: Reilly Santos MD Attestation Narrative: Date: 01/09/18 Time: 1136 I have independently interviewed and examined patient prior to discharge. Chart reviewed. Case discussed with my [employer]AL [employer]. Care plan developed with my [employer]AL [employer], agree with above. Doing well today. Had slight temp elevation overnight. Oral drive improving. Strength improving. Breathing stable. Lungs: clear, no crackles or wheezes. CV: regular AB: soft nt/nd MSE: awake alert appropriate Plan: Medically stable for discharge to home. Continue with doxycycline for 2 weeks. Increased activities as able - advised will take several weeks for recovery. F/U with Dr Nuñez in 1 week. See orders for details.
[2018-01-09 11:40] VITALS: TEMP 98.5
== END 2018-01-09 13:15 | disposition home or self-care (01) | DRG 872 ==
LOC: ED 11:46 → EDHOLD 14:18 → SUATTDRO 14:18 → MED 14:40 → EDHOLD 14:40
PROVIDERS: ADMIT Internal Medicine; ATTEND Hospitalist